=== PATIENT | male | born 1935 | race Caucasian/White ===

== ENCOUNTER 2019-01-13 09:59 | Outpatient (CLI) | payer MEDICARE ==
[~2019-01-13] VITALS: Ht 154.9 cm; Wt 50.1 kg
[~2019-01-13 09:59] MED LIST: AMLO10TA82 PO; LISI10TA PO; SIMV40TA4 PO; TERA5CAP10 PO
[2019-01-13 10:15] VITALS: BP 108/51
[2019-01-13 10:54] LABS: BASOPHILS % (AUTO) 0 % (0-10); EOSINOPHILS % (AUTO) 0 % (0-10); HEMATOCRIT 39 % (40-54); HEMOGLOBIN 13.1 G/DL (13.3-17.7); LYMPHOCYTES # (AUTO) 0.8 X 10^3 (1.0-4.0); LYMPHOCYTES % (AUTO) 12 % (12-44); MEAN CORPUSCULAR HEMOGLOBIN 33 PG (25-34); MEAN CORPUSCULAR HGB CONC 34 G/DL (32-36); MEAN CORPUSCULAR VOLUME 98 FL (80-99); MEAN PLATELET VOLUME 9.9 FL (7.4-10.4); MONOCYTES # (AUTO) 0.4 X 10^3 (0.0-1.0); MONOCYTES % (AUTO) 7 % (0-12); NEUTROPHILS # (AUTO) 5.5 X 10^3 (1.8-7.8); NEUTROPHILS % (AUTO) 81 % (42-75); PLATELET COUNT 188 10^3/uL (130-400); RED CELL DISTRIBUTION WIDTH 13.7 % (10.0-14.5); WHITE BLOOD COUNT 6.8 10^3/uL (4.3-11.0)
[2019-01-13] MEDS ORDERED: LISI10TA2 PO (11:10)
[2019-01-13] MEDS ORDERED: TERA5CAP3 PO (11:10)
[2019-01-13] MEDS ORDERED: SIMV80TA21 PO (11:10)
[2019-01-13] MEDS ORDERED: MULT-974 PO (11:10)
[2019-01-13] MEDS ORDERED: CYAN250010 PO (11:10)
== END 2019-01-13 11:22 ==
LOC: PREOP 09:59
PROVIDERS: ATTEND Urology
DX: Z01.812 Encounter for preprocedural laboratory examination (principal); N40.0 Benign prostatic hyperplasia without lower urinary tract symptoms; Z11.2 Encounter for screening for other bacterial diseases
CPT/HCPCS: 36415; 85025; 86850; 86900; 86901; 87081

== ENCOUNTER 2019-01-17 07:06 | Day surgery (SDC) | payer MEDICARE ==
[~2019-01-17] VITALS: Ht 154.9 cm; Wt 47.3 kg
[~2019-01-17 07:06] MED LIST changes: +CYAN250010 PO; +LISI10TA2 PO; +MULT-974 PO; +SIMV80TA21 PO; +TERA5CAP3 PO
[2019-01-17 07:10] VITALS: BP 150/68
--- NOTE | 2019-01-17 07:16 | Progress Note-Pre Operative ---
Pre-Operative Progress Note H&P Reviewed The H&P was reviewed, patient examined and no changes noted. Date Seen by Provider: Jan 17, 2019 Time Seen by Provider: 07:16 Date H&P Reviewed: Jan 17, 2019 Time H&P Reviewed: 07:16 Pre-Operative Diagnosis: BPH WITH PROSTATISM REFRACTORY TO MEDICAL TREATMENT HERNANDEZ ROBERTSON MD Jan 17, 2019 07:16
[2019-01-17] MEDS ORDERED: cefTRIAXone FOR IV USE 1,000 MG in WATER (STERILE) FOR INJECTION 10 ML IV ONE (07:45)
[2019-01-17] MEDS: LACTATED RINGERS 1,000 ML IV PRN ×2 (08:00→11:00)
[2019-01-17] MEDS ORDERED: LIDOCAINE PF 2% 5 ML (XYLOCAINE) VIAL ONE (10:13)
[2019-01-17] MEDS ORDERED: fentaNYL INJECTION 100 MCG/2 ML AMP ONE (10:13)
[2019-01-17] MEDS ORDERED: proPOfol 200 MG/20 ML (DIPRIVAN) VIAL IV ONE (10:13)
--- NOTE | 2019-01-17 12:08 | Progress Note-Post Operative ---
Post-Operative Progess Note Surgeon (s)/Scalping Machine Operator (s) Surgeon HERNANDEZ ROBERTSON MD Scalping Machine Operator: NONE Pre-Operative Diagnosis BPH WITH PROSTATISM REFRACTORY TO MEDICAL TREATMENT Post-Operative Diagnosis SAME Procedure & Operative Findings Date of Procedure 01/17/19 Procedure Performed/Findings TURP Anesthesia Type SPINAL Estimated Blood Loss Estimated blood loss (mL): 200CC Specimens/Packing Specimens Removed PROSTATE CHIPS Packing: NONE HERNANDEZ ROBERTSON MD Jan 17, 2019 12:08
[2019-01-17] MEDS ORDERED: BUPIVACAINE SPINAL 0.75% (SENSORCAINE) 2 ML AMP ONE (12:10)
[2019-01-17] MEDS ORDERED: BELLADONNA ALK/OPIUM (B & O) 30 MG SUPP PR PRN (12:15)
[2019-01-17] MEDS ORDERED: MILK OF MAGNESIA 400 MG/5 ML 30 ML UDC PO PRN (12:15)
[2019-01-17] MEDS ORDERED: ZOLPIDEM 5 MG (AMBIEN) TAB PO PRN (12:15)
[2019-01-17] MEDS ORDERED: morphine INJ 10 MG/ML 1ML (SYR OR VIAL) IVP ONE (12:30)
--- NOTE | 2019-01-17 13:10 | NUR ---
SASHA LO admitted to room 423-1, with an admitting diagnosis of TURP , on 01/17/19 from [facility], accompanied by STAFF.SASHA LO introduced to surroundings, call light, bed controls, phone, TV, temperature control, lights, meal times, smoking policy, visitor policy, side rail policy, bathrooms and showers. Patient Rights given to patient in the handbook.SASHA LO verbalizes understanding that [facility] is not responsible for the loss or damage to any personal effects or valuables that are kept in the patients posession during their hospitalization. The following Patient Care Plans were discussed with the PT: Discharge Planning, PAIN CONTROL AND CATH. CARE,IV THERAPY, and TESTS AND PROCEDURES. SASHA LO verbalizes understanding of Interdisciplinary Patient Education. Patient and/or family were informed about the Rapid Response Team and its purpose.
[2019-01-17 15:30] VITALS: BP 136/64
[2019-01-17] MEDS: HYDROcodone/APAP 10 MG/325 MG (LORTAB) TAB PO PRN ×2 (16:12→21:19)
[2019-01-17] MEDS: LACTATED RINGERS 1,000 ML IV SCH (16:19)
[2019-01-17 20:20] VITALS: BP 143/65
[2019-01-17] MEDS: DOCUSATE SODIUM 100 MG (COLACE) CAP PO SCH (21:18)
[2019-01-17 23:09] VITALS: BP 139/65
--- NOTE | 2019-01-17 23:37 | OPERATIVE REPORT ---
DATE OF SERVICE: 01/17/2019 PREOPERATIVE DIAGNOSIS: Benign prostatic hyperplasia with prostatism refractory to medical treatment. POSTOPERATIVE DIAGNOSIS: Benign prostatic hyperplasia with prostatism refractory to medical treatment. OPERATION PERFORMED: Transurethral resection of the prostate. SURGEON: Hernandez Robertson MD ANESTHESIA: Spinal. COMPLICATIONS: None. DESCRIPTION OF PROCEDURE: Under satisfactory spinal anesthesia, the patient in lithotomy position, genitalia were prepped and draped in usual sterile fashion. Urethra was dilated with Ariel sounds to accommodate a 27-Fij[employer] resectoscope. Resection was started first on the median lobe, which was completely leveled. Then, the lateral lobes were resected starting from the roof, the sides and finally the apical tissue and the base. Bleeders were cauterized as the resection was proceeding and hemostasis was complete and resection was very adequate. were then evacuated and cystoscopy confirmed intact ureteric orifices. Veru and sphincter with good reflux. Estimated blood loss was 200 mL, which was replaced. The resectoscope was removed a 22-Fijian 30 mL 3-way catheter was inserted, connected to continuous bladder irrigation with a return, which was tinged. The balloon was inflated to 40 mL and put on some traction. The patient tolerated the procedure and anesthesia well and was sent to recovery room in stable condition. Job ID: [id number] DocumentID: [id number] Dictated Date: 01/17/2019 12:19:52 Table Games Supervisor Date: 01/17/2019 19:26:49 Dictated By: HERNANDEZ ROBERTSON MD
[2019-01-18] MEDS: LACTATED RINGERS 1,000 ML IV SCH ×2 (00:43→04:39)
--- NOTE | 2019-01-18 03:50 | NUR ---
PT C/O LOWER ABD PAIN AND STATES THAT "MY BLADDER IS FULL AND NEED TO USE THE URINAL". BLADDER SCAND DONE AND 65ML ON BLADDER. IRRIGATION PERFORMED WITH 10ML AND NOTHING GETTING BACK. ASKED TO IRRIGATE CLAYTON HEALY AND NO ABLE TO GET ANY RETURN. OVERHEAD LINE WORKER CALLED. OVERHEAD LINE WORKER WAS ABLE TO REMOVED OBSTRUCTION. DR. ROBERTSON NOTIFIED AND GIVE ORDER TO CHANGE CATHETER IF GET CLOT IT
[2019-01-18 04:35] VITALS: BP 150/68
--- NOTE | 2019-01-18 06:33 | Anesthesia-Regional Post-Op ---
Regional Patient Condition Mental Status: Alert, Oriented x3 Circulation: Same as Pre-Op Headache: Absent Sensation: Full Recovery Motor Block: Absent Post Op Complications Complications None Follow Up Care/Instructions Patient Instructions None needed. Anesthesia/Patient Condition Patient is doing well, no complaints, stable vital signs, no apparent adverse anesthesia problems. No complications reported per nursing. LAURA SHIPMAN CRNA Jan 18, 2019 06:33
--- NOTE | 2019-01-18 06:53 | Progress Note-Urology ---
Progress Note-Urology Progress Notes/Assess & Plan Progress/Assessment & Plan AFEBRILE, VSS. URINE CRYSTAL CLEAR. COMPLAINS OF LT GROIN PAIN, NO LEG OR CALF PAIN. NONE THIS AM. NO TENDER CALVES. SEEMS RELATED TO CORRALES AND SPASMS. IF PERSISTS AFTER DC CORRLAES, WE WILL CONSULT HOSPITALIST Final Diagnosis BPH WITH PROSTATISM HERNANDEZ ROBERTSON MD Jan 18, 2019 06:53
[2019-01-18] MEDS ORDERED: cefTRIAXone FOR IV USE 1,000 MG in WATER (STERILE) FOR INJECTION 10 ML IV ONE (07:00)
[2019-01-18] MEDS: HYDROcodone/APAP 10 MG/325 MG (LORTAB) TAB PO PRN ×2 (07:46→15:01)
[2019-01-18] MEDS: DOCUSATE SODIUM 100 MG (COLACE) CAP PO SCH ×2 (07:48→20:12)
[2019-01-18 08:00] VITALS: BP 166/70
[2019-01-18] MEDS: ONDANSETRON 4 MG/2 ML (SDV) Z0FRAN IVP PRN ×2 (09:18→15:05)
[2019-01-18 12:00] VITALS: BP 160/72
[2019-01-18] MEDS ORDERED: LEVOFLOXACIN 500 MG/100 ML IV 100 ML IV ONE (12:15)
--- NOTE | 2019-01-18 14:06 | NUR ---
Initial visit with pt, his , and other family member. Pt is an active member at [facility] and shared about strong rapport with his traffic clerk, Maynor. Pt's family has had 4 recent deaths, including a nephew who in a train accident. Offered active listening, compassionate presence and bereavement support. Pt's Nurse Chemical Dependency visited him today.The family expressed appreciation for podiatric medicine professor's visit in addition to their home tenriism support.
[2019-01-18 16:00] VITALS: BP 141/63
[2019-01-18] MEDS ORDERED: PROMETHAZINE INJ 25 MG/ML (PHENERGAN) AMP IVP PRN (16:45)
[2019-01-18] MEDS: D5 LR IV SOLUTION 1,000 ML IV SCH (17:07)
[2019-01-18 19:46] VITALS: BP 166/70
--- NOTE | 2019-01-18 21:39 | NUR ---
2001 PT FEELING TO NEED TO PEE. VOIDED 50ML. BLADDER SCANNED. 570 ML POST VOID RESIDUAL 2006 DR ROBERTSON CALLED AND NEW ORDER TO STRAIGHT CATH NOW AND PRN FOR POST BLADDER SCAN GREATER THAN 400 OR IF PT FEELS UNCOMFORTABLE. 2029 STRAIGHT CATH PT WITH 550 ML OUT. STRAWBERRY COLOR, NO STRONG ODOR. PT TOLERATED WELL .
[2019-01-19] VITALS: BP 137/63
[2019-01-19] MEDS: D5 LR IV SOLUTION 1,000 ML IV SCH ×2 (02:50→08:41)
[2019-01-19 04:46] VITALS: BP 158/61
[2019-01-19 08:00] VITALS: BP 143/67
[2019-01-19] MEDS: LACTATED RINGERS 1,000 ML IV SCH (08:41)
[2019-01-19] MEDS: DOCUSATE SODIUM 100 MG (COLACE) CAP PO SCH (09:00)
--- NOTE | 2019-01-19 11:32 | Progress Note-Urology ---
Progress Note-Urology Progress Notes/Assess & Plan Progress/Assessment & Plan VOIDING WELL. URINE PINK. CONTINENT. GREAT STREAM. EMPTIES. NO PAINS. NO NAUSEA OR VOMITING. DOING WELL. HOME WITH INSTRUCTIONS Final Diagnosis BPH WITH PROSTATISM HERNANDEZ ROBERTSON MD Jan 19, 2019 11:32
--- NOTE | 2019-01-19 11:34 | Discharge Inst-Urology ---
Discharge Inst-Urology Discharge Medications New, Converted, or Re-newed RX: RX given to Patient/Fam Patient Instructions/Follow Up Plan Please make appointment to been seen in office in 2 weeks. Rest till then Keep bowels soft and moving Increase oral fluids for 48 hours and then as needed. Diet as tolerated. If questions or concerns contact your physician Or seek help at emergency department. HERNANDEZ ROBERTSON MD Jan 19, 2019 11:34
[2019-01-19 11:55] VITALS: BP 143/67
== END 2019-01-19 11:57 | disposition home or self-care (01) ==
LOC: SDC 07:06 → 4TH 13:10 → SDC 01-19 11:57
PROVIDERS: ATTEND Urology
DX: C79.82 Secondary malignant neoplasm of genital organs (principal); Z85.51 Personal history of malignant neoplasm of bladder; N40.0 Benign prostatic hyperplasia without lower urinary tract symptoms; I25.10 Atherosclerotic heart disease of native coronary artery without angina pectoris; I10 Essential (primary) hypertension; E78.00 Pure hypercholesterolemia, unspecified; F03.90 Unspecified dementia, unspecified severity, without behavioral disturbance, psychotic disturbance, mood disturbance, and anxiety; Z87.891 Personal history of nicotine dependence; Z79.899 Other long term (current) drug therapy
CPT/HCPCS: 36415; 86850; 86900; 86901; 94664

== ENCOUNTER 2019-01-21 05:58 | Emergency (ER) | payer MEDICARE ==
[~2019-01-21] VITALS: Ht 154.9 cm; Wt 47.3 kg
--- NOTE | 2019-01-21 06:07 | NUR ---
urinary catheter clamped after 900ml clear yellow urine drained.
--- NOTE | 2019-01-21 06:16 | ED GU-Male ---
General Chief Complaint: - Urinary Stated Complaint: ABD PAIN Source: patient Exam Limitations: no limitations History of Present Illness Date Seen by Provider: Jan 21, 2019 Time Seen by Provider: 06:00 Initial Comments Here with report of inability to urinate and bladder fullness that occurred starting last night and has persisted. He has been unable to pass urine. Recently had prostate procedure earlier this week for enlarged prostate. He was doing okay until yesterday evening. Denies fever or chills. Denies nausea or vomiting. Not passing any urine so doesn't know if he has blood or not. Timing/Duration: yesterday Severity/Quality: moderate, aching, full Location: suprapubic Radiation: none Activities at Onset: none Prior Genitourinary Problems: recent trauma (TURP procedure), similar symptoms Modifying Factors: Worsens With Palpation; Improves With Urinating Associated Symptoms: No dysuria, No fever/chills, No lower back pain, No nausea /vomiting Allergies and Home Medications Allergies Coded Allergies: No Known Drug Allergies (Verified Allergy, Unknown, 05/28/08) Home Medications Cyanocobalamin (Vitamin B-12) 2,500 Mcg Tablet, 2,500 MCG PO DAILY, (Reported) Lisinopril 10 Mg Tablet, 10 MG PO DAILY, (Reported) Multivitamin 1 Each Tablet, 1 EACH PO DAILY, (Reported) Simvastatin 80 Mg Tablet, 40 MG PO DAILY, (Reported) Terazosin HCl 5 Mg Capsule, 5 MG PO HS, (Reported) Patient Home Medication List Home Medication List Reviewed: Yes Review of Systems Review of Systems Constitutional: see HPI; No chills, No fever Respiratory: no symptoms reported Cardiovascular: no symptoms reported Genitourinary: see HPI, pain, other (retention) Psychiatric/Neurological: No Symptoms Reported Past Hmfwtox-Vkocna-Hyscgg Hx Past Med/Social Hx: Reviewed Nursing Past Med/Soc Hx Patient Social History Alcohol Use: Denies Use Recreational Drug Use: No Smoking Status: Former Smoker Former Smoker, Quit: Jan 13, 1965 2nd Hand Smoke Exposure: Yes Recent Foreign Travel: No Contact w/Someone Who Travel: No Recent Hopitalizations: No Immunizations Up To Date Date of Pneumonia Vaccine: Aug 09, 2017 Date of Influenza Vaccine: Aug 08, 2018 Seasonal Allergies Seasonal Allergies: Yes (MILD) Past Medical History Surgeries: Yes (HERINA REPAIR, BLADDER CA REMOVED, LEG SUTURED) Gallbladder, Transurethral Resection Respiratory: No Cardiac: No Neurological: Yes ( REPORTS PT REPEATS HIMSELF OFTEN AND IS FORGETFUL) Dementia Reproductive Disorders: No Sexually Transmitted Disease: No HIV/AIDS: No Genitourinary: Yes (BPH) Prostate Problems Gastrointestinal: Yes Chronic Constipation, Ulcer Musculoskeletal: Yes Arthritis Endocrine: No HEENT: Yes (READING GLASSES, DENTURES) Loss of Vision: Bilateral Hearing Impairment: Hard of Hearing, Bilateral Hearing Aide Cancer: Yes Bladder What Type of Treatment Did You: Surgical Intervention Psychosocial: No Integumentary: No Blood Disorders: No Adverse Reaction/Blood Tranf: No (N/A) Family Medical History Reviewed Nursing Family Hx Physical Exam Vital Signs Vital Signs - First Documented 01/21/19 06:00 Temp 98.2 Pulse 84 Resp 18 B/P (MAP) 186/72 (110) Pulse Ox 95 O2 Delivery Room Air Capillary Refill : Height, Weight, BMI Height: 5'1.00" Weight: 104lbs. 6.0oz. 47.028025yh; 19.7 BMI Method: General Appearance: WD/WN, mild distress (bladder pain) Cardiovascular: regular rate, rhythm, no murmur Respiratory: lungs clear, no accessory muscle use Gastrointestinal: soft; No guarding, No rebound; tenderness (suprapubic) Neurologic/Psychiatric: alert, oriented x 3 Skin: normal color, warm/dry Progress/Results/Core Measures Suspected Sepsis SIRS Temperature: Pulse: Respiratory Rate: Blood Pressure / Mean: Results/Orders Lab Results Laboratory Tests Test 01/21/19 06:10 Range/Units Urine Color YELLOW Urine Clarity CLEAR Urine pH 6.5 5-9 Urine Specific Steens 1.010 L 1.016-1.022 Urine Protein 3+ H NEGATIVE Urine Glucose (UA) NEGATIVE NEGATIVE Urine Ketones 1+ H NEGATIVE Urine Nitrite NEGATIVE NEGATIVE Urine Bilirubin NEGATIVE NEGATIVE Urine Urobilinogen NORMAL NORMAL MG/DL Urine Leukocyte Esterase 2+ H NEGATIVE Urine RBC (Auto) 5+ H NEGATIVE Urine RBC >100 H /HPF Urine WBC 5-10 H /HPF Urine Crystals NONE /LPF Urine Bacteria FEW H /HPF Urine Casts NONE /LPF Urine Mucus NEGATIVE /LPF Urine Culture Indicated YES My Orders Orders - JONO CASIANO MD Catheter(Urinary) Insert & Ass 03,15 (01/21/19 06:07) Ua Culture If Indicated (01/21/19 06:07) Urine Culture (01/21/19 06:10) Vital Signs/I&O 01/21/19 06:00 Temp 98.2 Pulse 84 Resp 18 B/P (MAP) 186/72 (110) Pulse Ox 95 O2 Delivery Room Air Capillary Refill : Progress Note : Progress Note Seen and evaluated. She was recent transurethral resection of the prostate. Now with urinary retention. Krueger catheter ordered. UA ordered. Monitor patient. 0620: Krueger catheter placed per nursing and passed well. Clear yellow urine draining. 900 mL out and clamped. We will restart in a few minutes. Patient feels much better. Monitor patient. 0640: UA results noted. Patient is on Cipro currently and will continue that. He feels much better after catheter placement. We'll keep that in. I will try to make contact with his physician but will send a copy of the chart to Dr. Robertson's office. Discharged home with return precautions. Patient and family verbalize understanding instructions and agreement with plan. Departure Impression Primary Impression: Postprocedural urinary retention Disposition: 01 HOME, SELF-CARE Condition: Improved Departure-Patient Inst. Decision time for Depature: 06:25 Referrals: NO,LOCAL PHYSICIAN (PCP) Primary Care Physician Patient Instructions: Urinary Retention (DC) Add. Discharge Instructions: All discharge instructions reviewed with patient and/or family. Voiced understanding. Keep catheter in place until you talk with Dr. Robertson Wednesday. Call his office Wednesday morning for appointment and recheck. Return for worse pain, fever, vomiting, weakness, breathing problems or other concerns as needed. Continue to drink plenty of fluids. Copy Copies To 1: HERNANDEZ ROBERTSON MD, TIMOTHY D MD Jan 21, 2019 06:16
[2019-01-21 06:19] LABS: BILIRUBIN,URINE NEGATIVE (NEGATIVE); CLARITY,URINE CLEAR; COLOR,URINE YELLOW; GLUCOSE, URINE (UA) NEGATIVE (NEGATIVE); KETONES,URINE 1+ (NEGATIVE); LEUKOCYTE ESTERASE ,URINE 2+ (NEGATIVE); NITRITE,URINE NEGATIVE (NEGATIVE); PH,URINE 6.5 (5-9); PROTEIN,URINE 3+ (NEGATIVE); UROBILINOGEN,URINE NORMAL (NORMAL)
[2019-01-21 06:32] LABS: BACTERIA,URINE FEW /HPF; RBC,URINE >100 /HPF
--- NOTE | 2019-01-21 06:32 | NUR ---
leg bag attached to patient
[2019-01-21 06:55] VITALS: BP 133/57
== END 2019-01-21 08:17 | disposition home or self-care (01) ==
LOC: EDUNIT# 05:58 → ER 05:59
DX: N99.89 Other postprocedural complications and disorders of genitourinary system (principal); R33.9 Retention of urine, unspecified; F03.90 Unspecified dementia, unspecified severity, without behavioral disturbance, psychotic disturbance, mood disturbance, and anxiety; Z87.19 Personal history of other diseases of the digestive system; Z87.448 Personal history of other diseases of urinary system; Z87.891 Personal history of nicotine dependence; Z98.890 Other specified postprocedural states; Z90.79 Acquired absence of other genital organ(s); Z85.51 Personal history of malignant neoplasm of bladder
CPT/HCPCS: 51702; 81000; 87088

== ENCOUNTER → 2019-03-07 | Outpatient (CLI) | payer MEDICARE ==
[~2019-03-07] MED LIST changes: +CATHETER FLUSH 10 ML SYR IV PRN
--- NOTE | 2019-03-07 13:35 | Diagnostic Imaging Report ---
PROCEDURE: CT abdomen and pelvis without contrast. TECHNIQUE: Multiple contiguous axial images were obtained through the abdomen and pelvis without the use of intravenous contrast. Auto Exposure Controls were utilized during the CT exam to meet ALARA standards for radiation dose reduction. INDICATION: History of bladder cancer. COMPARISON: 05/02/2008. FINDINGS: Included portions of both lung bases show moderate emphysematous changes. Small pericardial effusion is also noted. Note is also made of diminished density to the intravascular contents suggestive of potential underlying anemia. CT abdomen: A few mildly prominent air-filled loops of small bowel are noted within the left upper abdominal quadrant. At its widest, the small bowel measures 2.5 cm in diameter. Normal appendix is identified. There is colonic diverticulosis, but no CT evidence of acute diverticulitis. The kidneys, adrenal glands, spleen, pancreas, and liver have an unremarkable noncontrast CT appearance. Benign-appearing hypodense cyst is noted within the dome of segment 2 of the liver. There is no loculated fluid collection, free fluid, or free air within the abdomen. No abnormal mesenteric or retroperitoneal adenopathy is seen. There is advanced diffuse calcified aortic and arterial atherosclerosis. Bony structures show age-related degenerative changes. CT pelvis: Prostate is moderately enlarged measuring 5.4 x 4.8 cm in axial dimension. Patient appears to be status post previous TURP. Small amount of free fluid is noted within the pelvis. There is no loculated fluid collection or free air. No abnormal pelvic adenopathy is seen. Osseous structures show no acute abnormalities. IMPRESSION: 1. Small amount of free fluid within the pelvis. Although this is of uncertain significance etiology, it is considered abnormal in a male patient. 2. Colonic diverticulosis, but no CT evidence of acute diverticulitis. 3. Prostatomegaly with evidence of likely prior TURP. 4. Few mildly prominent air-filled loops of small bowel, but no distinct evidence of obstruction. 5. Small pericardial effusion. 6. Other nonacute findings as described above. Dictated by: Dictated on workstation # [id number]
--- NOTE | 2019-03-07 15:56 | Diagnostic Imaging Report ---
INDICATION: Newly diagnosed bladder carcinoma and history of prostate carcinoma. TECHNIQUE: Patient was administered 27.0 mCi technetium-99m MDP intravenously and whole-body imaging was performed after three-hour delay. COMPARISON: No prior bone scans are available for comparison. FINDINGS: Normal uptake of activity by the axial and appendicular skeleton is noted. There is uptake by the kidneys with excretion into urine bladder. No abnormal foci or trace accumulation is seen to suggest osseous metastatic disease. IMPRESSION: No scintigraphic evidence of osseous metastatic disease. Dictated by: Dictated on workstation # [id number]
== END ==
LOC: RAD 10:47
PROVIDERS: ATTEND Urology
DX: R18.8 Other ascites (principal); K57.30 Diverticulosis of large intestine without perforation or abscess without bleeding; N40.0 Benign prostatic hyperplasia without lower urinary tract symptoms; R14.0 Abdominal distension (gaseous); I31.3 Pericardial effusion (noninflammatory); K76.89 Other specified diseases of liver; I70.209 Unspecified atherosclerosis of native arteries of extremities, unspecified extremity; Z85.51 Personal history of malignant neoplasm of bladder; Z85.46 Personal history of malignant neoplasm of prostate
CPT/HCPCS: 74176; 78306

== ENCOUNTER 2021-08-04 21:02 | Observation (INO) | payer MEDICARE ==
[~2021-08-04] VITALS: Ht 157.5 cm; Wt 42.0 kg
[~2021-08-04 21:02] MED LIST changes: -CATHETER FLUSH 10 ML SYR IV PRN; -LISI10TA2 PO; +LISI10TA25 PO; -TERA5CAP3 PO
[2021-08-04 21:10] VITALS: BP 131/58
--- NOTE | 2021-08-04 21:36 | ED Neurological Problem ---
General Chief Complaint: Neurological Problems Stated Complaint: HEADACHE, SLURRED SPEECH, DIZZY Source: patient Exam Limitations: no limitations History of Present Illness Date Seen by Provider: Aug 04, 2021 Time Seen by Provider: 21:18 Initial Comments This is a well-appearing 86-year-old male who presented to the ER via POV with his daughter for headache, slurred speech, and dizziness that started suddenly at 1999. Daughter states that he was sitting at home when all of a sudden he grabbed his head stated "I do not feel right" and started having slurred speech. His daughter called 911 and he was evaluated by EMS at that time. His symptoms had resolved and he was instructed to go to the emergency department, family decided to go POV. Daughter states that he was recently diagnosed with early Alzheimer disease a few weeks ago, has history of HTN and HLD. He is currently at his baseline per daughter. He reports mild frontal THOMPSON. Denies fever, chills, cough, chest pain, nausea, vomiting, abdominal pain, diarrhea. Did receive his COVID vaccines this year. Daughter states his PCP with [facility]. Allergies and Home Medications Allergies Coded Allergies: No Known Drug Allergies (Verified , 05/28/08) Patient Home Medication List Home Medication List Reviewed: Yes Amlodipine Besylate (Amlodipine Besylate) 10 Mg Tablet, 10 MG PO DAILY, (Reported) Entered as Reported by: ЕЛЕНА BRIZUELA on 08/05/21 114 Last Action: Continued Atorvastatin Calcium (Atorvastatin Calcium) 20 Mg Tablet, 20 MG PO DAILY, (Reported) Entered as Reported by: ЕЛЕНА BRIZUEAL on 08/05/21 114 Last Action: Held Cholecalciferol (Vitamin D3) (Vitamin D3) 50 Mcg Tablet, 50 MCG PO DAILY, (Reported) Entered as Reported by: ЕЛЕНА BRIZUELA on 08/05/21 1149 Last Action: Converted Donepezil HCl (Donepezil HCl) 5 Mg Tablet, 5 MG PO HS, (Reported) Entered as Reported by: ЕЛЕНА BRIZUELA on 08/05/21 114 Last Action: Continued Lisinopril (Lisinopril) 10 Mg Tablet, 10 MG PO DAILY, (Reported) Entered as Reported by: KODI LESTER on 01/13/19 1110 Last Action: Continued Multivitamin (Multi-Vitamin Daily) 1 Each Tablet, 1 EACH PO DAILY, (Reported) Entered as Reported by: KODI LESTER on 01/13/191109 Last Action: Continued Ubidecarenone (Co Q-10) 100 Mg Capsule, 100 MG PO DAILY, (Reported) Entered as Reported by: ЕЛЕНА BRIZUELA on 08/05/21 1150 Last Action: Converted Discontinued Medications Cyanocobalamin (Vitamin B-12) (Vitamin B12) 2,500 Mcg Tablet, 2,500 MCG PO DAILY, (Reported) Discontinued Reason: No Longer Taking Entered as Reported by: KODI LESTER on 01/13/191109 Last Action: Discontinued Simvastatin (Simvastatin) 80 Mg Tablet, 40 MG PO DAILY, (Reported) Discontinued Reason: No Longer Taking Entered as Reported by: KODI LESTER on 01/13/191109 Last Action: Discontinued Terazosin HCl (Terazosin HCl) 5 Mg Capsule, 5 MG PO HS, (Reported) Discontinued Reason: No Longer Taking Entered as Reported by: KODI LESTER on 01/13/191109 Last Action: Discontinued Review of Systems Review of Systems Constitutional: see HPI Eyes: No Symptoms Reported Ears, Nose, Mouth, Throat: no symptoms reported Respiratory: no symptoms reported Cardiovascular: no symptoms reported Gastrointestinal: no symptoms reported Genitourinary: no symptoms reported Musculoskeletal: no symptoms reported Skin: no symptoms reported Psychiatric/Neurological: See HPI Endocrine: No Symptoms Reported Hematologic/Lymphatic: No Symptoms Reported Past Iesfhly-Iebyxu-Jvursj Hx Patient Social History Tobacco Use?: No Use of E-Cig and/or Vaping dev: No Substance use?: No Alcohol Use?: No Pt feels they are or have been: No Immunizations Up To Date Influenza Vaccine Up-to-Date: No; Not Current Second COVID19 Vaccination Dennis: 01/19 COVID19 Vaccine Disability Coordinator: Unsure Seasonal Allergies Seasonal Allergies: Yes Past Medical History Surgeries: Yes (HERINA REPAIR, BLADDER CA REMOVED, LEG SUTURED) Gallbladder, Transurethral Resection Respiratory: No Cardiac: No Neurological: Yes Dementia Reproductive Disorders: No Sexually Transmitted Disease: No HIV/AIDS: No Genitourinary: Yes (BPH) Prostate Problems Gastrointestinal: Yes Chronic Constipation, Ulcer Musculoskeletal: Yes Arthritis Endocrine: No HEENT: Yes (READING GLASSES, DENTURES) Loss of Vision: Bilateral Hearing Impairment: Hard of Hearing, Bilateral Hearing Aide Cancer: Yes Bladder What Type of Treatment Did You: Surgical Intervention Psychosocial: No Integumentary: No Blood Disorders: No Adverse Reaction/Blood Tranf: No (N/A) Physical Exam Vital Signs Vital Signs - First Documented 08/04/21 08/04/21 21:10 21:26 Temp 36.3 Pulse 72 Resp 20 B/P (MAP) 131/58 Pulse Ox 97 O2 Delivery Room Air Capillary Refill : Height, Weight, BMI Height: 5'1.00" Weight: 104lbs. 6.0oz. 47.892422wd; 19.7 BMI Method:Stated General Appearance: WD/WN, no apparent distress HEENT: PERRL/EOMI, normal ENT inspection, TMs normal, pharynx normal Neck: full range of motion, normal inspection Respiratory: lungs clear, normal breath sounds, no respiratory distress, no accessory muscle use Cardiovascular: normal peripheral pulses, regular rate, rhythm, no murmur Peripheral Pulses: 2+ Radial Pulses (R), 2+ Radial Pulses (L) Gastrointestinal: normal bowel sounds, non tender, soft Back: normal inspection Extremities: normal range of motion, non-tender, normal inspection, no pedal edema Neurologic/Psychiatric: no motor/sensory deficits, alert, normal mood/affect; No oriented x 3 (oriented to person only ), No facial droop, No motor weakness, No sensory deficit Crainal Nerves: normal hearing, normal speech, PERRL Coordination/Gait: normal finger to nose Motor/Sensory: no motor deficit, no sensory deficit, no pronator drift Skin: normal color, warm/dry Stroke Onset of Symptoms Date of Onset of Symptoms: Aug 04, 2021 Time of Symptom Onset: 20:00 Onset of Symptoms: Yes Symptoms onset unknown: No NIH Stroke Scale Assessment Select: Initial Level of Consciousness: 0=Alert (0), Level of Consciousness- Questions: 0=Answers both month/age (0), LOC Commands: 0=Performs both tasks (0), Gaze: Normal (0), Visual Mas: 0=No visual loss (0), Facial Movement (Facial Paresis): 0=Normal symmetrical mnt (0), Motor Function-Arms Right: 0=No drift (0), Motor Function-Arms Left: 0=No drift (0), Motor Function-Legs Right: 0=No drift (0), Motor Function-Legs Left: 0=No drift (0), Limb Ataxia: 0=Absent (0), Sensory: 0=Normal:no loss (0), Best Language: 0=No aphasia (0), Dysarthria: 0=Normal (0), Extinction & Inattention: 0=No abnormality (0), Total: 0 Progress/Results/Core Measures Results/Orders Lab Results Laboratory Tests Test 08/04/21 21:25 Range/Units White Blood Count 10.7 4.3-11.0 10^3/uL Red Blood Count 4.17 L 4.30-5.52 10^6/uL Hemoglobin 13.8 13.3-17.7 g/dL Hematocrit 42 40-54 % Mean Corpuscular Volume 100 H 80-99 fL Mean Corpuscular Hemoglobin 33 25-34 pg Mean Corpuscular Hemoglobin Concent 33 32-36 g/dL Red Cell Distribution Width 12.9 10.0-14.5 % Platelet Count 220 130-400 10^3/uL Mean Platelet Volume 9.9 9.0-12.2 fL Immature Granulocyte % (Auto) 0 % Neutrophils (%) (Auto) 85 H 42-75 % Lymphocytes (%) (Auto) 9 L 12-44 % Monocytes (%) (Auto) 5 0-12 % Eosinophils (%) (Auto) 0 0-10 % Basophils (%) (Auto) 0 0-10 % Neutrophils # (Auto) 9.0 H 1.8-7.8 10^3/uL Lymphocytes # (Auto) 1.0 1.0-4.0 10^3/uL Monocytes # (Auto) 0.6 0.0-1.0 10^3/uL Eosinophils # (Auto) 0.0 0.0-0.3 10^3/uL Basophils # (Auto) 0.0 0.0-0.1 10^3/uL Immature Granulocyte # (Auto) 0.0 0.0-0.1 10^3/uL Prothrombin Time 14.1 12.2-14.7 SEC INR Comment 1.0 0.8-1.4 Activated Partial Thromboplast Time 30 24-35 SEC D-Dimer 0.48 0.00-0.49 UG/ML Sodium Level 142 135-145 MMOL/L Potassium Level 4.1 3.6-5.0 MMOL/L Chloride Level 102 98-107 MMOL/L Carbon Dioxide Level 23 21-32 MMOL/L Anion Gap 17 H 5-14 MMOL/L Blood Urea Nitrogen 30 H 7-18 MG/DL Creatinine 1.30 0.60-1.30 MG/DL Estimat Glomerular Filtration Rate 52 BUN/Creatinine Ratio 23 Glucose Level 137 H 70-105 MG/DL Calcium Level 10.8 H 8.5-10.1 MG/DL Corrected Calcium 10.4 H 8.5-10.1 MG/DL Total Bilirubin 1.0 0.1-1.0 MG/DL Aspartate Amino Transf (AST/SGOT) 32 5-34 U/L Alanine Aminotransferase (ALT/SGPT) 30 0-55 U/L Alkaline Phosphatase 78 40-136 U/L Troponin I < 0.028 <0.028 NG/ML Total Protein 7.2 6.4-8.2 GM/DL Albumin 4.5 3.2-4.5 GM/DL My Orders Orders - RADHA MERA APRN Cbc With Automated Diff (08/04/21:) Protime With Inr (08/04/21:) Partial Thromboplastin Time (08/04/21:) Comprehensive Metabolic Panel (08/04/21:) Fibrin Degradation Products (08/04/21:) Troponin I (08/04/21:) Ua Culture If Indicated (08/04/21:) Chest 1 View, Ap/Pa Only (08/04/21:) Ekg Tracing (08/04/21:) Accucheck Stat ONCE (08/04/21:) Ed Iv/Invasive Line Start (08/04/21:) Vital Signs Stroke Patient Q15M (08/04/21 21:09) Ct Head Wo-R/O Stroke (08/04/21 21:) O2 (08/04/21:) Monitor-Rhythm Ecg Trace Only (08/04/21:) Dysphagia Screening Tool (08/04/21 21:) Vital Signs Stroke Patient Q15M (08/04/21 22:44) Dysphagia Screening Tool (08/04/21 22:44) Ct Angio Head/Neck (08/04/21 22:44) Vital Signs/I&O 08/04/21 08/04/21 21:10 21:26 Temp 36.3 Pulse 72 72 Resp 20 20 B/P (MAP) 131/58 131/58 (82) Pulse Ox 97 97 O2 Delivery Room Air Progress Progress Note : Progress Note Patient examined and in no acute distress. Daughter states that his symptoms had sudden onset and resolved quickly as well. She decided to have him evaluated in the ER due to concern for stroke. Initiated stroke workup. CT head neg. Labs reviewed and are relatively unremarkable. EKG SR, with no ST segment changes. His NIH is 0. CT angio head/neck neg for large vessel occlusion or high grade stenosis. Given ASA 325mg in ED. Discussed case with Dr. Vora, will admit observation and continue TIA vs CVA workup. Plan of care reviewed with patient and daughter, they are agreeable with plan. Initial ECG Impression Date: Aug 04, 2021 Initial ECG Impression Time: 21:36 Initial ECG Rate: 70 Initial ECG Rhythm: Normal Sinus Initial ECG Intervals: Normal Initial ECG Impression: Nonspecific Changes Initial ECG Comparisson: No Previous ECG Available Diagnostic Imaging Diagonstic Imaging: Xray Plain Films/CT/US/NM/MRI: chest Comments [facility]. [place], [place] NAME: SASHA LO [facility] REC#: [id number] PT STATUS: REG ER : 1935 PHYSICIAN: RADHA MERA APRN ADMIT DATE: 08/04/21/ER Signed Date of Exam:08/04/21 CHEST 1 VIEW, AP/PA ONLY INDICATION: Dizziness, confusion, slurred speech. FINDINGS: There is bullous emphysematous changes in the lungs present. There is equivocal findings for a vague developing infiltrate in the left base but this may be partial atelectasis. There is chronic scarring superimposed. Hilar and mediastinal contours normal. There is no failure pattern. 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 No other potential acute abnormality. Dictated by: Dictated on workstation # [id number] Dict: 08/04/215 Trans: 08/04/214 [facility] [id number] Interpreted by: BEAU TRIANA Electronically signed by: BEAU TRIANA 08/04/212203 Reviewed: Reviewed by Nm Diagonstic Imaging: CT Plain Films/CT/US/NM/MRI: head Comments [facility] [place] NAME: SASHA LO [facility] REC#: [id number] PT STATUS: REG ER : 1935 PHYSICIAN: RADHA MERA COMMUNICATION TECHNICIAN ADMIT DATE: 08/04/21/ER Signed Date of Exam:08/04/21 CT HEAD WO-R/O STROKE PROCEDURE: CT head wo r/o stroke. TECHNIQUE: Multiple contiguous axial images were obtained through the brain without the use of intravenous contrast. Auto Exposure Controls were utilized during the CT exam to meet ALARA standards for radiation dose reduction. INDICATION: Weakness, dizziness, head pain. No priors. FINDINGS: There is mild senescent cerebral cortical atrophy but no eboni hydrocephalus. There is intracranial atherosclerotic vascular calcifications of the cavernous carotids as well as the left intrathecal vertebral artery. Chronic appearing symmetrical periventricular white matter disease likely small vessel sequelae. No evidence for cortical edema. No sulcal effacement. No mass or mass effect. There is no hemorrhage. There are no acute extra-axial fluid collections. No findings of focal nor generalized cerebral edema. No evidence for an elevation to the intracerebral pressures. IMPRESSION: Atherosclerosis, atrophy and chronic appearing white matter disease. No hemorrhage, edema, or acute appearing abnormalities. Dictated by: Dictated on workstation # [id number] Dict: 08/04/212216 Trans: 08/04/212244 [facility] [id number] Interpreted by: BEAU TRIANA Electronically signed by: BEAU TRIANA 08/04/212244 Reviewed: Reviewed by Nm Diagonstic Imaging: CT Comments [facility] [place] NAME: SASHA LO [facility] REC#: [id number] PT STATUS: REG ER : 1935 PHYSICIAN: RADHA MERA COMMUNICATION TECHNICIAN ADMIT DATE: 08/04/21/ER Signed Date of Exam:08/04/21 CT HEAD WO-R/O STROKE PROCEDURE: CT head wo r/o stroke. TECHNIQUE: Multiple contiguous axial images were obtained through the brain without the use of intravenous contrast. Auto Exposure Controls were utilized during the CT exam to meet ALARA standards for radiation dose reduction. INDICATION: Weakness, dizziness, head pain. No priors. FINDINGS: There is mild senescent cerebral cortical atrophy but no eboni hydrocephalus. There is intracranial atherosclerotic vascular calcifications of the cavernous carotids as well as the left intrathecal vertebral artery. Chronic appearing symmetrical periventricular white matter disease likely small vessel sequelae. No evidence for cortical edema. No sulcal effacement. No mass or mass effect. There is no hemorrhage. There are no acute extra-axial fluid collections. No findings of focal nor generalized cerebral edema. No evidence for an elevation to the intracerebral pressures. IMPRESSION: Atherosclerosis, atrophy and chronic appearing white matter disease. No hemorrhage, edema, or acute appearing abnormalities. Dictated by: Dictated on workstation # [id number] Dict: 08/04/217 Trans: 08/04/215 [facility] [id number] Interpreted by: BEAU TRIANA Electronically signed by: BEAU TRIANA 08/04/215 Reviewed: Reviewed by Me Departure Communication (Admissions) Time/Spoke to Admitting Phy: 21:45 Dr. Vora Impression Primary Impression: TIA (transient ischemic attack) Disposition: ADMITTED INPATIENT Condition: Stable Admissions Decision to Admit Reason: Admit from ER (General) Decision to Admit/Date: Aug 04, 2021 Time/Decision to Admit Time: 21:30 Departure-Patient Inst. Referrals: NO,LOCAL PHYSICIAN (PCP/Family) Primary Care Physician Copy Copies To 1: [facility]/RADHA HERRERA COMMUNICATION TECHNICIAN Aug 04, 2021 21:36
--- NOTE | 2021-08-04 22:04 | Diagnostic Imaging Report ---
INDICATION: Dizziness, confusion, slurred speech. FINDINGS: There is bullous emphysematous changes in the lungs present. There is equivocal findings for a vague developing infiltrate in the left base but this may be partial atelectasis. There is chronic scarring superimposed. Hilar and mediastinal contours normal. There is no failure pattern. 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 No other potential acute abnormality. Dictated by: Dictated on workstation # [id number]
[2021-08-04 22:11] LABS: BASOPHILS % (AUTO) 0 % (0-10); EOSINOPHILS % (AUTO) 0 % (0-10); HEMATOCRIT 42 % (40-54); HEMOGLOBIN 13.8 g/dL (13.3-17.7); LYMPHOCYTES % (AUTO) 9 % (12-44); MEAN CORPUSCULAR HEMOGLOBIN 33 pg (25-34); MEAN CORPUSCULAR HGB CONC 33 g/dL (32-36); MEAN CORPUSCULAR VOLUME 100 fL (80-99); MEAN PLATELET VOLUME 9.9 fL (9.0-12.2); MONOCYTES # (AUTO) 0.6 10^3/uL (0.0-1.0); MONOCYTES % (AUTO) 5 % (0-12); NEUTROPHILS % (AUTO) 85 % (42-75); PLATELET COUNT 220 10^3/uL (130-400); WHITE BLOOD COUNT 10.7 10^3/uL (4.3-11.0)
[2021-08-04 22:21] LABS: ALBUMIN 4.5 GM/DL (3.2-4.5); CHLORIDE 102 MMOL/L (98-107); POTASSIUM 4.1 MMOL/L (3.6-5.0); SODIUM 142 MMOL/L (135-145)
[2021-08-04 22:22] LABS: CALCIUM 10.8 MG/DL (8.5-10.1)
[2021-08-04 22:24] LABS: GLUCOSE 137 MG/DL (70-105); TOTAL PROTEIN 7.2 GM/DL (6.4-8.2)
[2021-08-04 22:25] LABS: CARBON DIOXIDE 23 MMOL/L (21-32); FIBRIN DEGRADATION PRODUCTS 0.48 UG/ML (0.00-0.49); PROTHROMBIN TIME PATIENT 14.1 SEC (12.2-14.7)
[2021-08-04 22:27] LABS: ALKALINE PHOSPHATASE 78 U/L (40-136); GFR ESTIMATED 52
[2021-08-04 22:28] LABS: BUN/CREATININE RATIO 23
--- NOTE | 2021-08-04 22:29 | Diagnostic Imaging Report ---
PROCEDURE: CT head wo r/o stroke. TECHNIQUE: Multiple contiguous axial images were obtained through the brain without the use of intravenous contrast. Auto Exposure Controls were utilized during the CT exam to meet ALARA standards for radiation dose reduction. INDICATION: Weakness, dizziness, head pain. No priors. FINDINGS: There is mild senescent cerebral cortical atrophy but no eboni hydrocephalus. There is intracranial atherosclerotic vascular calcifications of the cavernous carotids as well as the left intrathecal vertebral artery. Chronic appearing symmetrical periventricular white matter disease likely small vessel sequelae. No evidence for cortical edema. No sulcal effacement. No mass or mass effect. There is no hemorrhage. There are no acute extra-axial fluid collections. No findings of focal nor generalized cerebral edema. No evidence for an elevation to the intracerebral pressures. IMPRESSION: Atherosclerosis, atrophy and chronic appearing white matter disease. No hemorrhage, edema, or acute appearing abnormalities. Dictated by: Dictated on workstation # [id number]
[2021-08-04 22:30] LABS: ALANINE AMINOTRANSFERASE 30 U/L (0-55)
[2021-08-04] MEDS ORDERED: NS 100 ML (IVPB) BAG IV ONE (23:30)
[2021-08-04] MEDS ORDERED: ASPIRIN E.C. 325 MG (ECOTRIN) TABLET PO ONE (23:30)
[2021-08-04] MEDS ORDERED: IOHEXOL 350 MG/ML 100 ML (OMNIPAQUE 350) VIAL IV ONE (23:30)
[2021-08-04] MEDS ORDERED: CATHETER FLUSH 10 ML SYR IV PRN (23:30)
[2021-08-04] MEDS ORDERED: HOLD METFORMIN - RECEIVED CONTRAST 20 ML VIAL IV SCH (23:30)
[2021-08-04 23:53] LABS: BILIRUBIN,URINE NEGATIVE (NEGATIVE); CLARITY,URINE SL CLOUDY; COLOR,URINE YELLOW; GLUCOSE, URINE (UA) NEGATIVE (NEGATIVE); KETONES,URINE 1+ (NEGATIVE); LEUKOCYTE ESTERASE ,URINE NEGATIVE (NEGATIVE); NITRITE,URINE NEGATIVE (NEGATIVE); PH,URINE 5.5 (5-9); PROTEIN,URINE NEGATIVE (NEGATIVE)
[2021-08-05] VITALS (8 sets, daily range): BP systolic 121–163; BP diastolic 58–72
--- NOTE | 2021-08-05 | Diagnostic Imaging Report ---
PROCEDURE: CT angiography of the head and CT angiography of the neck with and without contrast. TECHNIQUE: Contiguous noncontrast images were obtained from the skull base through the vertex. After intravenous contrast administration, helical CT angiography of the neck was performed. Source data was reformatted into 3D MIP projections. Delayed post contrast acquisition was also obtained. Auto Exposure Controls were utilized during the CT exam to meet ALARA standards for radiation dose reduction. INDICATION: Weakness, dizziness, head pain. FINDINGS: Delayed postcontrast enhanced head CT showed atrophy and patchy periventricular white matter disease but no mass or abnormal enhancement. Following contrast, there is enhancement of the major dural venous sinuses. CT angiogram neck: Visualized pulmonary apices showed centrilobular emphysema and some biapical pleural-parenchymal scarring. Atherosclerotic aorta is patent. The branching pattern of the great vessels normal. The subclavian arteries patent. The bilateral cervical vertebral arteries showed mild non-stenosing scattered calcified plaque. The vessels are codominant and no hemodynamically significant stenosis. Common carotids patent with mild scattered plaque without significant stenosis. The carotid bulbs and bifurcations reveal left greater than right predominantly calcified plaque. Just beyond its bifurcation the left ICA is narrowed by about 50-60%, the right narrowed by less than 50%. Mid to distal cervical ICAs widely patent. CT angiogram head: There is left greater than right intradural vertebral atherosclerotic calcified plaque. The density of a calcified plaque in the left vertebral obscures from visualization its lumen beyond the calcified plaque there is wide patency and opacification of the vessels lumen. The bilateral FISHING ROD ASSEMBLER segments opacified and unremarkable. There is calcified plaque in the cavernous segments of the intracranial carotids both of which have stenoses of 50% or less. The A1 segments and the paired anterior cerebral arteries normal. The bilateral middle cerebral arterial segments and their primary branches are patent. No large vessel occlusion, thrombus or filling defects seen. There is no aneurysm or vascular malformation. IMPRESSION: Cervical and intracranial predominantly calcified atherosclerotic disease without high-grade stenosis, large vessel occlusion, thrombus, aneurysm or acute appearing arterial pathology. Dictated by: Dictated on workstation # [id number]
[2021-08-05 00:07] LABS: BACTERIA,URINE NEGATIVE /HPF
[2021-08-05 01:14] LABS: HEMATOCRIT 40 % (40-54); HEMOGLOBIN 13.3 g/dL (13.3-17.7); MEAN CORPUSCULAR HEMOGLOBIN 33 pg (25-34); MEAN CORPUSCULAR HGB CONC 34 g/dL (32-36); MEAN CORPUSCULAR VOLUME 99 fL (80-99); MEAN PLATELET VOLUME 9.8 fL (9.0-12.2); PLATELET COUNT 205 10^3/uL (130-400); WHITE BLOOD COUNT 10.3 10^3/uL (4.3-11.0)
[2021-08-05] MEDS ORDERED: fentaNYL INJ 100 MCG/2 ML AMP IV PRN (01:30)
[2021-08-05] MEDS ORDERED: ONDANSETRON 4 MG/2 ML (SDV) Z0FRAN IV PRN (01:30)
[2021-08-05] MEDS ORDERED: ENALAPRILAT 2.5 MG/2 ML (VASOTEC) VIAL IV PRN (01:30)
[2021-08-05] MEDS ORDERED: ACETAMINOPHEN 325 MG TABLET PO PRN ×2 (01:30)
[2021-08-05] MEDS: NS IV 1000 ML 1,000 ML IV SCH ×2 (01:42→20:03)
[2021-08-05] MEDS ORDERED: ACETAMINOPHEN 650 MG SUPP (TYLENOL) PR PRN (01:45)
[2021-08-05] MEDS ORDERED: RT-ALBUTEROL SULF 2.5 MG/3 ML PRE-MIX VIAL INH PRN (02:15)
[2021-08-05 06:06] LABS: BASOPHILS % (AUTO) 0 % (0-10); EOSINOPHILS % (AUTO) 0 % (0-10); HEMATOCRIT 40 % (40-54); HEMOGLOBIN 13.6 g/dL (13.3-17.7); LYMPHOCYTES # (AUTO) 1.9 10^3/uL (1.0-4.0); LYMPHOCYTES % (AUTO) 18 % (12-44); MEAN CORPUSCULAR HEMOGLOBIN 33 pg (25-34); MEAN CORPUSCULAR HGB CONC 34 g/dL (32-36); MEAN CORPUSCULAR VOLUME 98 fL (80-99); MEAN PLATELET VOLUME 9.9 fL (9.0-12.2); MONOCYTES # (AUTO) 0.7 10^3/uL (0.0-1.0); MONOCYTES % (AUTO) 6 % (0-12); NEUTROPHILS % (AUTO) 75 % (42-75); PLATELET COUNT 237 10^3/uL (130-400); WHITE BLOOD COUNT 10.6 10^3/uL (4.3-11.0)
[2021-08-05 06:18] LABS: POTASSIUM 3.8 MMOL/L (3.6-5.0)
[2021-08-05 06:19] LABS: ALBUMIN 4.5 GM/DL (3.2-4.5)
[2021-08-05 06:20] LABS: CALCIUM 10.3 MG/DL (8.5-10.1)
[2021-08-05 06:21] LABS: TOTAL PROTEIN 7.2 GM/DL (6.4-8.2)
[2021-08-05 06:23] LABS: BILIRUBIN,TOTAL 1.1 MG/DL (0.1-1.0)
[2021-08-05 06:25] LABS: CREATININE SERUM 0.87 MG/DL (0.60-1.30)
[2021-08-05] MEDS: ENOXAPARIN 30 MG/0.3 ML (LOVENOX) SYR SC SCH (08:27)
--- NOTE | 2021-08-05 08:45 | Diagnostic Imaging Report ---
PROCEDURE: US carotid duplex, bilateral. TECHNIQUE: Multiple real-time grayscale images were obtained over the carotid arteries in various projections, bilaterally. Additional spectral analysis and color Doppler duplex images were also obtained. INDICATION: Transient ischemic attack Parameters based on the consensus panel Aggarwal-Scale and Doppler ultrasound criteria published September 2003, Radiology, Volume 229. DOPPLER (peak systolic velocity M/S Right Left CCA 1.06 1.31 ICA Proximal 0.79 1.29 ICA Mid 1.36 1.01 ICA Distal 1.14 .68 RATIO 1.28 .98 ECA 1.10 .94 VERT .55 .56 There is significant plaque seen throughout the bilateral common carotid arteries, carotid bifurcations, extending into the internal and external carotid arteries. Waveforms are normal. There is normal antegrade flow within both vertebral arteries. IMPRESSION: 1. 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 2. There is 50-69% stenosis of the left internal carotid artery by velocity criteria. Dictated by: Dictated on workstation # [id number]
[2021-08-05] MEDS ORDERED: ASPIRIN 300 MG (5 GR) SUPPOSITORY PR PRN (09:00)
[2021-08-05] MEDS ORDERED: ASPIRIN E.C. 325 MG (ECOTRIN) TABLET PO SCH (09:00)
[2021-08-05] MEDS ORDERED: LORazepam INJ 2 MG/ML (ATIVAN) VIAL ONE (10:05)
[2021-08-05] MEDS: LORazepam INJ 2 MG/ML (ATIVAN) VIAL IVP PRN ×3 (10:10→20:48)
[2021-08-05] MEDS ORDERED: LORazepam INJ 2 MG/ML (ATIVAN) VIAL IVP PRN ×2 (10:30→21:45)
--- NOTE | 2021-08-05 10:31 | Physical Therapy Evaluation ---
PT Evaluation-General Medical Diagnosis Admission Date Aug 04, 2021 at 23:05 Medical Diagnosis: TIA Onset Date: Aug 04, 2021 Therapy Diagnosis Therapy Diagnosis: debility/weakness Height/Weight Height (Feet): 5 Height (Inches): 1.00 Weight (Pounds): 104 Weight (Ounces): 6.0 Precautions Precautions/Isolations: Fall Prevention, Standard Precautions Referral Physician: Vielka Reason for Referral: Evaluation/Treatment Medical History Pertinent Medical History: Dementia, HTN Additional Medical History bladder cancer Current History ER secondary to [place], slurred speech and dizziness Reviewed History: Yes Social History Home: Single Level Current Living Status: Other Family Prior Prior Level of Function SCALE: Activities may be completed with or without assistive devices. 6-Xrzdmllomm-azhljjl completes the activity by him/herself with no assistance from a helper. 5-Set-up or Clean-up Assistance-helper sets up or cleans up; patient completes activity. Burton assists only prior to or following the activity. 4-Supervision or Touching Assistance-helper provides verbal cues and/or touching/steadying and/or contact guard assistance as patient completes activity. Assistance may be provided throughout the activity or intermittently. 3-Partial/Moderate Assistance-helper does LESS THAN HALF the effort. Burton lifts, holds or supports trunk or limbs, but provides less than half the effort. 2-Substantial/Maximal Assistance-helper does MORE THAN HALF the effort. Burton lifts or holds trunk or limbs and provides more than half the effort. 0-Fxmqmrnah-czxeje does ALL the effort. Patient does none of the effort to complete the activity. Or, the assistance of 2 or more helpers is required for the patient to complete the activity. If activity was not attempted, code reason: 7-Patient Refused. 9-Not Applicable-not attempted and the patient did not perform the activity before the current illness, exacerbation or injury. 10-Not Attempted due to Environmental Limitations-(lack of equipment, weather restraints, etc.). 88-Not Attempted due to Medical Conditions or Safety Concerns. Bed Mobility: 6 Transfers (B,C,W/C): 6 Gait: 6 Indoor Mobility (Ambulation): Independent Prior Devices Use: None PT Evaluation-Current Subjective Patient agrees to PT. Objective Patient Orientation: Person Attachments: IV ROM/Strength ROM Lower Extremities bilateral LE WFL Strength Lower Extremities 4-/5 grossly bilateral LE Integumentary/Posture Bowel Incontinence: No Bladder Incontinence: No Posture WFL Neuromuscular (Tone, Coordination, Reflexes) grossly intact Sensory Vision: Functional Hearing: Functional Transfers Lying to Sitting/Side of Bed(Q: 4 Sit to Stand (QC): 4 Chair/Wzx-rp-Svhjm Xfer(QC): 4 SBA for safety Gait Does the Patient Walk?: Yes Mode of Locomotion: Walk Anticipated Mode of Locomotion: Walk Walk 10 feet (QC): 4 Walk 50 ft with 2 Turns(QC): 4 Walk 150 ft (QC): 4 Distance: 300' Gait Assistive Device: FWW Comments/Gait Description safe and functional with no deviation Balance Sitting Static: Normal Sitting Dynamic: Normal Standing Static: Normal Standing Dynamic: Normal Assessment/Needs 86 y.o. male, will be seen short term by skilled PT to address functional mobility and strength to ensure safe return to home at maximum LOF. 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 Goals Time Frame: Aug 09, 2021 Roll Left & Right (QC): 5 Sit to Lying (QC): 5 Lying-Sitting on Side/Bed(QC): 5 Sit to Stand (QC): 5 Chair/Hkg-nk-Zhtem Xfer(QC): 5 Toilet Transfer (QC): 5 Walk 10 feet (QC): 5 Walk 50ft with 2 Turns (QC): 5 Walk 150 ft (QC): 5 PT Plan Problem List Problem List: Safety Treatment/Plan Treatment Plan: Continue Plan of Care Treatment Plan: Education, Functional Activity Melva, Functional Strength, Gait, Safety, Therapeutic Exercise, Transfers Treatment Duration: Aug 09, 2021 Frequency: 5 times per week Estimated Hrs Per Day: .25 hour per day Patient and/or Family Agrees t: Yes Time/GCodes Time In: 807 Time Out: 820 Total Billed Treatment Time: 13 Total Billed Treatment 1 visit EVModC 13 min ORLANDO ZEPEDA PT Aug 05, 2021 10:31
--- NOTE | 2021-08-05 11:08 | Consultation-Cardiology ---
HPI-Cardiology Cardiology Consultation: Date of Consultation 08/05/21 Time Seen by a Provider: 10:40 Date of Admission 08-04-21 Attending Physician Lynn Yu DO Admitting Physician Naomi,Local Physician Consulting Physician Celsa Llanos MD HPI: Chief Complaint: TIA Mr. Jiménez is an 86 yr old male admitted to [facility] from the ED with possible TIA vs CVA. He has dementia and Alzeheimers and is unable to provide any information. His daughter and are at the bedside. They report yesterday he was helping to carry in groceries earlier in the day when he reported SOB, abd distension and fatigue. She states later in the day he was helping in the kitchen when he grabbed his head and c/o feeling dizzy. He sat down in a chair and slumped to the left side and began drooling and they were unable to get him to answer them. Daughter states she called EMS. She states after several minutes he c/o needing to have a BM. She reports he was becoming more responsive so she helped him to ambulate to the . She reports while he was ambulating he began to have profuse drooling and his words were slurred. She reports he c/o occ palpitations with exertion which improve with rest. She reports he has not reported any c/o CP. No vomiting or diarrhea. She reports no weakness or facial asymmetry. Review of Systems-Cardiology Review of Systems Other comments ROS to the extent it could be obtained from family is as in HPI. D/t dementia he is unable to provide any information SQH-Bxnszt-Otiiag Hx Patient Social History Smoking Status: Former Smoker 2nd Hand Smoke Exposure: Yes Have you traveled recently?: No Alcohol Use?: Yes Pt feels they are or have been: No Tobacco type used: Cigarettes Immunizations Up To Date Date of Pneumonia Vaccine: Aug 09, 2017 Date of Influenza Vaccine: Aug 08, 2018 Past Medical History PMH As described under Assessment. Family Medical History Family Medical History: Daughter reports his mother had a CVA. Allergies and Home Medications Allergies Coded Allergies: No Known Drug Allergies (Verified , 05/28/08) Patient Home Medication List Cyanocobalamin (Vitamin B-12) (Vitamin B12) 2,500 Mcg Tablet, 2,500 MCG PO DAILY, (Reported) Entered as Reported by: KODI LESTER on 01/13/19 1110 Lisinopril (Lisinopril) 10 Mg Tablet, 10 MG PO DAILY, (Reported) Entered as Reported by: KODI LESTER on 01/13/19 111 Multivitamin (Multi-Vitamin Daily) 1 Each Tablet, 1 EACH PO DAILY, (Reported) Entered as Reported by: KODI LESTER on 01/13/19 111 Simvastatin (Simvastatin) 80 Mg Tablet, 40 MG PO DAILY, (Reported) Entered as Reported by: KODI LESTER on 01/13/19 111 Terazosin HCl (Terazosin HCl) 5 Mg Capsule, 5 MG PO HS, (Reported) Entered as Reported by: KODI LESTER on 01/13/191109 Physical Exam-Cardiology Physical Exam Vital Signs/I&O 08/05/21 08/05/21 08/05/21 08/05/21 00:41 00:45 00:58 02:04 Temp 36.2 36.3 Pulse 83 95 72 Resp 20 18 B/P (MAP) 121/59 163/72 (102) Pulse Ox 97 94 97 97 O2 Delivery Room Air Room Air Room Air FiO2 21 08/05/21 08/05/21 08/05/21 08/05/21 03:57 04:12 06:46 07:39 Temp 36.0 Pulse 80 69 76 Resp 18 B/P (MAP) 127/69 (88) Pulse Ox 97 O2 Delivery Room Air Room Air 08/05/21 08/05/21 08:00 08:35 Temp 36.5 Pulse 79 Resp 18 B/P (MAP) 133/61 (85) Pulse Ox 97 O2 Delivery Room Air Room Air Capillary Refill : Less Than 3 Seconds Constitutional: No AAO x 3 (opens eyes and answers to his name only); other (thin, frail) HEENT: PERRL, hard of hearing Neck: carotid bruit, carotid pulses are 2 + bilaterally Respiratory: No accessory muscle use, No respiratory distress; chest expansion is symmetric, chest is bilaterally symmetric, lungs clear to auscultation Cardiovascular: regular rate-rhythm; No JVD; S1 and S2 Gastrointestinal: No tender; soft, round, audible bowel sounds Extremities: no lower extremity edema bilateral Neurologic/Psychiatric: grossly intact (moves all extremities) Skin: No rash on exposed areas, No ulcerations on exposed areas Data Review Labs Laboratory Tests 08/04/21 21:25: White Blood Count 10.7, Red Blood Count 4.17L, Hemoglobin 13.8, Hematocrit 42, Mean Corpuscular Volume 100H, Mean Corpuscular Hemoglobin 33, Mean Corpuscular Hemoglobin Concent 33, Red Cell Distribution Width 12.9, Platelet Count 220, Mean Platelet Volume 9.9, Immature Granulocyte % (Auto) 0, Neutrophils (%) (Auto) 85H, Lymphocytes (%) (Auto) 9L, Monocytes (%) (Auto) 5, Eosinophils (%) (Auto) 0, Basophils (%) (Auto) 0, Neutrophils # (Auto) 9.0H, Lymphocytes # (Auto) 1.0, Monocytes # (Auto) 0.6, Eosinophils # (Auto) 0.0, Basophils # (Auto) 0.0, Immature Granulocyte # (Auto) 0.0, Prothrombin Time 14.1, INR Comment 1.0, Activated Partial Thromboplast Time 30, D-Dimer 0.48, Sodium Level 142, Potassium Level 4.1, Chloride Level 102, Carbon Dioxide Level 23, Anion Gap 17H, Blood Urea Nitrogen 30H, Creatinine 1.30, Estimat Glomerular Filtration Rate 52, BUN/Creatinine Ratio 23, Glucose Level 137H, Calcium Level 10.8H, Corrected Calcium 10.4H, Total Bilirubin 1.0, Aspartate Amino Transf (AST/SGOT) 32, Alanine Aminotransferase (ALT/SGPT) 30, Alkaline Phosphatase 78, Troponin I < 0.028, Total Protein 7.2, Albumin 4.5 08/04/21 23:47: Urine Color YELLOW, Urine Clarity SL CLOUDY, Urine pH 5.5, Urine Specific [place] 1.015L, Urine Protein NEGATIVE, Urine Glucose (UA) NEGATIVE, Urine Keto vincent 1+H, Urine Nitrite NEGATIVE, Urine Bilirubin NEGATIVE, Urine Urobilinogen 0.2, Urine Leukocyte Esterase NEGATIVE, Urine RBC (Auto) NEGATIVE, Urine RBC NONE, Urine WBC NONE, Urine Squamous Epithelial Cells 2-5, Urine Crystals NONE, Urine Bacteria NEGATIVE, Urine Casts NONE, Urine Mucus MODERATEH, Urine Culture Indicated NO 08/05/21 01:07: White Blood Count 10.3, Red Blood Count 4.02L, Hemoglobin 13.3, Hematocrit 40, Mean Corpuscular Volume 99, Mean Corpuscular Hemoglobin 33, Mean Corpuscular Hemoglobin Concent 34, Red Cell Distribution Width 12.9, Platelet Count 205, Mean Platelet Volume 9.8 08/05/21 05:30: White Blood Count 10.6, Red Blood Count 4.10L, Hemoglobin 13.6, Hematocrit 40, Mean Corpuscular Volume 98, Mean Corpuscular Hemoglobin 33, Mean Corpuscular Hemoglobin Concent 34, Red Cell Distribution Width 12.8, Platelet Count 237, Mean Platelet Volume 9.9, Immature Granulocyte % (Auto) 0, Neutrophils (%) (Auto) 75, Lymphocytes (%) (Auto) 18, Monocytes (%) (Auto) 6, Eosinophils (%) (Auto) 0, Basophils (%) (Auto) 0, Neutrophils # (Auto) 8.0H, Lymphocytes # (Auto) 1.9, Monocytes # (Auto) 0.7, Eosinophils # (Auto) 0.0, Basophils # (Auto) 0.0, Immature Granulocyte # (Auto) 0.0, Sodium Level 141, Potassium Level 3.8, Chloride Level 103, Carbon Dioxide Level 23, Anion Gap 15H, Blood Urea Nitrogen 26H, Creatinine 0.87, Estimat Glomerular Filtration Rate 83, BUN/Creatinine Ratio 30, Glucose Level 115H, Calcium Level 10.3H, Corrected Calcium 9.9, Total Bilirubin 1.1H, Aspartate Amino Transf (AST/SGOT) 35H, Alanine Aminotransferase (ALT/SGPT) 32, Alkaline Phosphatase 79, Total Protein 7.2, Albumin 4.5, Triglycerides Level 50, Cholesterol Level 141, LDL Cholesterol Direct 70, VLDL Cholesterol 10, HDL Cholesterol 56 Laboratory Tests 08/04/21 21:25 08/05/21 01:07 08/05/21 05:30 Radiology NAME: SASHA JIMÉNEZ [facility] REC#: [id number] PT STATUS: ADM Gómez : 1935 PHYSICIAN: LYNN YU DO ADMIT DATE: 08/04/21 Draft Date of Exam:08/05/21 US CAROTID PIETER COMPLETE [id number] PROCEDURE: US carotid duplex, bilateral. TECHNIQUE: Multiple real-time grayscale images were obtained over the carotid arteries in various projections, bilaterally. Additional spectral analysis and color Doppler duplex images were also obtained. INDICATION: Parameters based on the consensus panel Aggarwal-Scale and Doppler ultrasound criteria published September 2003, Radiology, Volume 229. DOPPLER (peak systolic velocity M/S Right Left CCA 1.06 1.31 ICA Proximal 0.79 1.29 ICA Mid 1.36 1.01 ICA Distal 1.14 .68 RATIO 1.28 .98 ECA 1.10 .94 VERT .55 .56 There is significant plaque seen throughout the bilateral common carotid arteries, carotid bifurcations, extending into the internal and external carotid arteries. Waveforms are normal. There is normal antegrade flow within both vertebral arteries. IMPRESSION: 1. 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 2. There is 50-69% stenosis of the left internal carotid artery by velocity criteria. Dictated on workstation # [id number] Dict: 08/05/21819 Trans: 08/05/21843 CVB [id number] Interpreted by: MEGAN PANIAGUA DO Electronically signed by: NAME: SASHA JIMÉNEZ [facility] REC#: [id number] PT STATUS: REG ER : 1935 PHYSICIAN: RADHA MERA APRN ADMIT DATE: 08/04/21/ER Signed Date of Exam:08/04/21 CT ANGIO HEAD/NECK PROCEDURE: CT angiography of the head and CT angiography of the neck with and without contrast. TECHNIQUE: Contiguous noncontrast images were obtained from the skull base through the vertex. After intravenous contrast administration, helical CT angiography of the neck was performed. Source data was reformatted into 3D MIP projections. Delayed post contrast acquisition was also obtained. Auto Exposure Controls were utilized during the CT exam to meet ALARA standards for radiation dose reduction. INDICATION: Weakness, dizziness, head pain. FINDINGS: Delayed postcontrast enhanced head CT showed atrophy and patchy periventricular white matter disease but no mass or abnormal enhancement. Following contrast, there is enhancement of the major dural venous sinuses. CT angiogram neck: Visualized pulmonary apices showed centrilobular emphysema and some biapical pleural-parenchymal scarring. Atherosclerotic aorta is patent. The branching pattern of the great vessels normal. The subclavian arteries patent. The bilateral cervical vertebral arteries showed mild non-stenosing scattered calcified plaque. The vessels are codominant and no hemodynamically significant stenosis. Common carotids patent with mild scattered plaque without significant stenosis. The carotid bulbs and bifurcations reveal left greater than right predominantly calcified plaque. Just beyond its bifurcation the left ICA is narrowed by about 50-60%, the right narrowed by less than 50%. Mid to distal cervical ICAs widely patent. CT angiogram head: There is left greater than right intradural vertebral atherosclerotic calcified plaque. The density of a calcified plaque in the left vertebral obscures from visualization its lumen beyond the calcified plaque there is wide patency and opacification of the vessels lumen. The bilateral MUFFLE WORKER segments opacified and unremarkable. There is calcified plaque in the cavernous segments of the intracranial carotids both of which have stenoses of 50% or less. The A1 segments and the paired anterior cerebral arteries normal. The bilateral middle cerebral arterial segments and their primary branches are patent. No large vessel occlusion, thrombus or filling defects seen. There is no aneurysm or vascular malformation. IMPRESSION: Cervical and intracranial predominantly calcified atherosclerotic disease without high-grade stenosis, large vessel occlusion, thrombus, aneurysm or acute appearing arterial pathology. Dictated by: Dictated on workstation # [id number] Dict: 08/04/21 [id number] Trans: 08/05/21 [facility] [id number] Interpreted by: BEAU TRIANA Electronically signed by: BEAU TRIANA 08/05/21 0000 ECG Impression ECG Initial ECG Rhythm: Normal Sinus A/P-Cardiology Assessment/Admission Diagnosis TIA vs CVA - management per medical services Palpitations - undetermined etiology Carotid dz - Carotid sclerosis with 50-69% stenosis of the right internal carotid artery by velocity criteria. There is 50-69% stenosis of the left internal carotid artery by velocity criteria. Per u/s of 08-05-21 HTN HLD H/O bladder cancer - treated by Dr. Newman H/O BPH - H/O TURP H/O tobaccoism - quit greater than 50 yrs ago GERD Alzheimer's with dementia Discussion and Recomendations TIA vs CVA - mangement per Dr. Yu and stroke team MRA of the head later today Carotid dz - already started on Plavix Palpitations - continue tele to eval for possible arrhythmia Continue home medications Monitor lab Further recs will be based on his hospital course We would like to thank Dr. Yu for this consult Clinical Quality Measures Stroke: Date of last known well: Aug 04, 2021 Time of last known well: 20:00 Symptoms onset unknown: No NASRA SALDIVAR L TOOL MACHINIST Aug 05, 2021 11:08
--- NOTE | 2021-08-05 11:32 | History & Physical-Hospitalist ---
ANAMARIAASIA 08/05/21 1132: History of Present Illness HPI/Chief Complaint CC: TIA HPI: Juan Jiménez is an 86 yo male with a history of Alzheimer's disease, and hypertension, who presents for evaluation and management of a TIA. It is reported that last night (08/04/2021) Juan experienced a THOMPSON, slurred speech, dizziness, after which he proclaimed "I do not feel right,"while grabbing his head. He sat down in a chair, slumped to the left, and started drooling; this prompted his daughter to call EMS. He currently does not exhibit any gross neurological deficits (no facial asymmetry, no weakness), though he does have mildly altered mentation (A&O x2), dementia, as well as moderate restlessness. Currently, he is able to ambulate with minimal assistance, and was able to evacuate his bowels at 9:00am. Juan is presently NPO until MRI of head and swallow study is completed. He received 0.5 mg of Ativan through IV to address his restlessness prior to imaging. Dr. Llanos was consulted to assess possible etiologies of Juan's CC, and determined he has 50-59% bilateral carotid stenosis. Currently, his and daughter are at his bedside. Source: patient, RN/MD Exam Limitations: clinical condition (Altered mentation) Date Seen 08/05/21 Attending Physician Lynn Yu DO PCP No,Local Physician Referring Physician Date of Admission Aug 04, 2021 at 23:05 Home Medications & Allergies Home Medications Reviewed patient Home Medication Reconciliation performed by pharmacy medication reconciliations floor technician and/or nursing. Patients Allergies have been reviewed. Allergies Allergies Coded Allergies No Known Drug Allergies (Verified05/28/08) Past Cmqckcp-Gkphvd-Lldiyo Hx Patient Social History Marrital Status: Employed/Student: retired Tobacco Use?: No Tobacco type used: Cigarettes Smoking Status: Former Smoker Smokeless Tobacco Frequency: Never a User Use of E-Cig and/or Vaping dev: No Substance use?: No Alcohol Use?: Yes Alcohol type: Beer Alcohol Frequency: Rarely Pt feels they are or have been: No Immunizations Up To Date Date of Influenza Vaccine: Aug 08, 2018 First/Initial COVID19 Vaccinat: 01/19 Second COVID19 Vaccination Dennis: 01/19 Tetanus Booster (TDap): Unknown Hepatitis A: No Hepatitis B: No Date of Pneumonia Vaccine: Aug 09, 2017 Seasonal Allergies Seasonal Allergies: Yes Current Status Advance Directives: No Communicates: Verbally Primary Language: British Preferred Spoken Language: British Is interpretation needed?: No Sensory deficits: Vision impairment, Hearing impairment Implanted or Applied Medical D: None Past Medical History Surgeries: Gallbladder, Transurethral Resection Dementia Sexually Transmitted Disease: No HIV/AIDS: No Prostate Problems Chronic Constipation, Ulcer Arthritis Loss of Vision: Bilateral Hearing Impairment: Hard of Hearing, Bilateral Hearing Aide Bladder What Type of Treatment Did You: Surgical Intervention Blood Disorders: No Adverse Reaction/Blood Tranf: No (N/A) Physical Exam Physical Exam Vital Signs Vital Signs - First Documented 08/04/21 08/04/21 08/05/21 21:10 21:26 02:04 Temp 36.3 Pulse 72 Resp 20 B/P (MAP) 131/58 Pulse Ox 97 O2 Delivery Room Air FiO2 21 Capillary Refill : Less Than 3 Seconds Height, Weight, BMI Height: 5'1.00" Weight: 104lbs. 6.0oz. 47.188643wo; 16.93 BMI Method:Stated General Appearance: No Apparent Distress, Chronically ill, Cachetic, Thin Eyes: Right Eye Normal Inspection, Right Eye PERRL HEENT: PERRL/EOMI Results Results/Procedures Labs Laboratory Tests 08/04/21 21:25 08/05/21 01:07 08/05/21 05:30 Patient resulted labs reviewed. Imaging: Reviewed Imaging Report Imaging US Carotid Duplex, bilaterally IMPRESSION: 1. 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 2. There is 50-69% stenosis of the left internal carotid artery by velocity criteria. Neck MRA: IMPRESSION: 1. No focal stenosis or dissection in the bilateral carotid and vertebral systems. Head MRA IMPRESSION: 1. No evidence of stenosis or aneurysm in the [place]. No large vessel occlusion. Meds Inpatient Medications Item Value Date Time Atorvastatin 80 mg 08/05/21 2100 Calcium HS/PO (Lipitor Tablet) Lorazepam 0.5 mg 08/05/21 1030 (Ativan ONCE PRN/IVP Injection) Lorazepam 2 mg 08/05/21 1005 (Ativan STK-MED ONCE/.ROUTE Injection) Lorazepam 0.5 mg 08/05/21 1000 (Ativan ONCE PRN/IVP 08/05/21 1040 Injection) Enoxaparin Sodium 30 mg 08/05/21 0900 (Lovenox DAILY/SC 08/05/21 0827 Injection) Aspirin 300 mg 08/05/21 0900 (Aspirin DAILY PRN/AR Suppository) Clopidogrel 75 mg 08/05/21 0900 Bisulfate DAILY/PO 08/05/21 1422 (Plavix Tablet) Famotidine 20 mg 08/05/21 0900 (Pepcid Tablet) DAILY/PO 08/05/21 1422 Albuterol Sulfate 2.5 mg 08/05/21 0215 (Proventil RTQ4HR PRN/INH Pre-Mix Nebs (Rt)) Acetaminophen 650 mg 08/05/21 0145 (Tylenol Q4H PRN/AR Suppository) Fentanyl Citrate 25 mcg 08/05/21 0130 (Sublimaze Q4H PRN/IV Injection) Acetaminophen 650 mg 08/05/21 0130 (Tylenol Tablet) Q4H PRN/PO Ondansetron HCl 4 mg 08/05/21 0130 (Zofran Q6H PRN/IV Injection (Sdv)) Enalaprilat 1.25 mg 08/05/21 0130 (Vasotec Q6H PRN/IV Injection) Sodium Chloride 100 ml 08/04/21 2330 (Sodium Chloride ONCE ONCE/IV 08/04/21 233 0.9% Ivpb Bag) Sodium Chloride 1,000 ml @ 50 mls/hr 08/05/21 0130 Sodium Chloride 10 ml 08/04/21 2330 (Catheter Flush NEEDED PRN/IV 08/04/21 233 Syringe) Iohexol 100 ml 08/04/21 2330 (Omnipaque 350 ONCE ONCE/IV 08/04/21 2333 Mg/ml 100 ml) Miscellaneous 08/04/21 233 (Hold Metformin- UD/IV Contrast Received) Assessment/Plan Admission Diagnosis TIA Admission Status: Inpatient Order (span 2 midnights) Reason for Inpatient Admission: TIA Assessment and Plan Assessment and Plan: 1. TIA, with temporary neurological deficits, 2/2 to bilateral carotid stenosis Monitor closely for neurological changes Continue anti-platelet medication with Clopidogrel Continue statin therapy with Atorvastatin Maintain BP control, and monitor daily Maintain BG WNL Work with PT to assess for weakness, and muscle strengthening Regular aerobic physical activity as tolerated 2. Alzheimer's Disease Consider assisted living or in-home healthcare Consult social services assistant to address low BMI, and low caloric intake Consider neurological consult from Jaqueline Astorga 3. HTN Continue BP medication Maintain good BP control Critical Care Critically Ill Patient Clinical Quality Measures Stroke: Date of last known well: Aug 04, 2021 Time of last known well: 20:00 Symptoms onset unknown: No LYNN YU DO 08/06/21 0526: History of Present Illness HPI/Chief Complaint CC: TIA HPI: This is an 86yoWM who presented with signs of stroke but ultimately resolved, in need of further evaluation for stroke risk factors. Cardiology has been consulted. MRI will be obtained after Ativan given, and dementia all complicate the issues. At this current time, Pt denies any pain. Source: patient, RN/MD Exam Limitations: clinical condition (Altered mentation) Time Seen by a Provider: 11:00 Past Hoqbqwh-Gjaoal-Xksluk Hx Patient Social History Marrital Status: Employed/Student: retired Past Medical History High Cholesterol, Hypertension Dementia Review of Systems Constitutional: see HPI Physical Exam Physical Exam General Appearance: No Apparent Distress, Chronically ill Eyes: Right Eye Normal Inspection, Right Eye PERRL HEENT: PERRL/EOMI, Normal ENT Inspection, Pharynx Normal, Moist Mucous Membranes Neck: Full Range of Motion, Normal Inspection, Non Tender Respiratory: Chest Non Tender, Lungs Clear, Normal Breath Sounds, No Accessory Muscle Use, No Respiratory Distress Cardiovascular: Regular Rate, Rhythm, No Edema, No Gallop, No JVD, No Murmur, Normal Peripheral Pulses Gastrointestinal: Normal Bowel Sounds, No Organomegaly, No Pulsatile Mass, Non Tender, Soft Back: Normal Inspection, No CVA Tenderness, No Vertebral Tenderness Extremity: Normal Capillary Refill, Normal Inspection, Normal Range of Motion, Non Tender, No Calf Tenderness, No Pedal Edema Neurologic/Psychiatric: Alert, No Motor/Sensory Deficits, Normal Mood/Affect, Disoriented Skin: Normal Color, Warm/Dry Lymphatic: No Adenopathy Assessment/Plan Admission Diagnosis Assessment: TIA Dementia Hypertension Hyperlipidemia Plan: Cardiology consult Echo Carotid ultrasound MRI Admission Status: Observation Reason for Inpatient Admission: TIA Supervisory-Addendum Brief Verification & Attestation Participated in pt care: history, MDM, physical Personally performed: exam, history, MDM, supervision of care Care discussed with: Medical Student Procedures: n/a Results interpretation: Verified all documentation Verification and Attestation of Medical Student E/M Service A medical student performed and documented this service in my presence. I reviewed and verified all information documented by the medical student and made modifications to such information, when appropriate. I personally performed the physical exam and medical decision making. Lynn Yu, Aug 06, 2021,05:26 ASIA CONRAD Aug 05, 2021 11:32 LYNN YU DO Aug 06, 2021 05:26
[2021-08-05] MEDS ORDERED: ATOR20TA66 PO (11:44)
[2021-08-05] MEDS ORDERED: AMLO-251 PO (11:44)
[2021-08-05] MEDS ORDERED: DONE5TAB30 PO (11:44)
[2021-08-05] MEDS ORDERED: CHOL200014 PO (11:49)
[2021-08-05] MEDS ORDERED: UBID100C44 PO (11:50)
[2021-08-05] MEDS: CLOPIDOGREL 75 MG (PLAVIX) TABLET PO SCH (14:22)
[2021-08-05] MEDS: FAMOTIDINE 20 MG (PEPCID) TABLET PO SCH (14:22)
--- NOTE | 2021-08-05 14:22 | Occupational Therapy Eval ---
OT Evaluation-General/PLF Medical Diagnosis Admission Date Aug 04, 2021 at 23:05 Medical Diagnosis: TIA Onset Date: Aug 04, 2021 Therapy Diagnosis Therapy Diagnosis: decreased ADL status Height/Weight Height (Feet): 5 Height (Inches): 1.00 Weight (Pounds): 104 Weight (Ounces): 6.0 Precautions Precautions/Isolations: Fall Prevention, Standard Precautions Referral Physician: Vielka Referral Reason: Evaluation/Treatment Medical History Pertinent Medical History: Dementia, HTN Current History ED due to THOMPSON, slurred speech, dizziness Social History Home: Single Level Current Living Status: Spouse Pt's daughter indicates pt is going to live with her at discharge. ADL-Prior Level of Function SCALE: Activities may be completed with or without assistive devices. 0-Gtpmptvlne-elhfwiy completes the activity by him/herself with no assistance from a helper. 5-Set-up or Clean-up Assistance-helper sets up or cleans up; patient completes activity. [place] assists only prior to or following the activity. 4-Supervision or Touching Assistance-helper provides verbal cues and/or to uching/steadying and/or contact guard assistance as patient completes activity. Assistance may be provided throughout the activity or intermittently. 3-Partial/Moderate Assistance-helper does LESS THAN HALF the effort. [place] lifts, holds or supports trunk or limbs, but provides less than half the effort. 2-Substantial/Maximal Assistance-helper does MORE THAN HALF the effort. [place] lifts or holds trunk or limbs and provides more than half the effort. 2-Ftijcvkdz-mrjkpg does ALL the effort. Patient does none of the effort to complete the activity. Or, the assistance of 2 or more helpers is required for the patient to complete the activity. If activity was not attempted, code reason: 7-Patient Refused. 9-Not Applicable-not attempted and the patient did not perform the activity before the current illness, exacerbation or injury. 10-Not Attempted due to Environmental Limitations-(lack of equipment, weather restraints, etc.). 88-Not Attempted due to Medical Conditions or Safety Concerns. ADL PLOF Comments Pt unable to provide information about PLOF, daughter and present. They indicate pt was able to bathe,dress and toilet independently at PLOF, able to hold a conversation and answer questions. Self Care: Independent Functional Cognition: Needed Some Help OT Current Status Subjective Pt laying in bed, and daughter present. Pt's family states OK for OT at this time. Pt very confused throughout tx, unable to answer OT questions and difficulty with following instructions provided by OT and daughter. Mental Status/Objective Patient Orientation: Person, Non-Verbal/Aphasic, [place] Attachments: IV Current Upper Extremity ROM pt unable to follow instructions to assess. Upper Extremity Strength Pt unable to follow instructions to assess ADL-Treatment Eating (QC): 88 (Pt NPO at time of OT evaluation) Toileting Hygiene (QC): 1 (Total assist to manage clothing, pt instructed to urinate but unable to follow instructions.) Other Treatments Pt laying in bed, easily awoken and agreeable to OT evaluation. OT asked if pt needed to use bathroom, pt had difficulty answering OT question but eventually shook his head. OT assisted pt to EOB, pt had difficulty following instructions, required assistance with BLEs and trunk to EOB. OT donned gait belt and placed FWW in front of pt, pt instructed to stand, but with tactile and verbal cues, unable to follow instructions. Daughter present, attempted to instruct pt as well, but pt still unable to follow instructions. With moderate assistance, pt able to perform sit to stand from EOB to FWW. Pt performed functional mobility from EOB to bathroom, assist from OT in the back for balance, pt's daughter positioned in the front to guide pt to the bathroom. Pt appeared to follow daughters instructions better than OTs, and he jokingly gestured with daughter throughout session. Daughter states pt is ornery. Pt postioned in front of toilet, instructed to sit. Pt would not bend knees in order to sit on toilet. OT guided pt to where he was facing the toilet, again instructing him to urinate, he would not follow instructions. Pt would not answer OT or daughters questions when asked if he needed to toilet. OT managed pt's pants up, guided pt back to walker and assisted him to recliner. Post tx, pt seated in recliner, call light in reach and all needs met, chair alarm on. Family at his side. Education OT Patient Education: Correct positioning, Modified ADL techniques, Progress toward Goal/Update tx plan, Purpose of tx/functional activities Teaching Recipient: Patient Teaching Methods: Demonstration, Discussion Response to Teaching: Unable to Return Demonstration, Unable to Comprehend OT Welfare Aide Goals Fdc Goals Time Frame: Aug 15, 2021 Eating (QC): 6 Oral Hygiene (QC): 6 Toileting Hygiene (QC): 4 Shower/Bathe Self (QC): 4 Upper Body Dressing (QC): 5 Lower Body Dressing (QC): 4 On/Off Footwear (QC): 4 Additional Goals: 1-Demonstrate ADL Tasks, 2-Verbalize Understanding, 3- ImproveStrength/Melva 1=Demonstrate adherence to instructed precautions during ADL tasks. 2=Patient will verbalize/demonstrate understanding of assistive devices/modifications for ADL. 3=Patient will improve strength/tolerance for activity to enable patient to perform ADL's. OT Education/Plan Problem List/Assessment Assessment: Decreased Activ Tolerance, Decreased Safety Aware, Decreased UE Strength, Impaired Cognition, Impaired Funct Balance, Impaired I ADL's, Impaired Self-Care Skills Discharge Recommendations Plan/Recommendations: Continue POC Treatment Plan/Plan of Care Patient would benefit from OT for education, treatment and training to promote independence in ADL's, mobility, safety and/or upper extremity function for ADL's. Plan of Care: ADL Retraining, Cognitive Retraining, Functional Mobility, UE Funct Exercise/Act Treatment Duration: Aug 15, 2021 Frequency: 5 times per week Estimated Hrs Per Day: .25 hour per day Rehab Potential: Fair Time/GCodes Start Time: 13:55 Stop Time: 14:10 Total Time Billed (hr/min): 15 Billed Treatment Time 1, ANTWON VIDES OT Aug 05, 2021 14:21
--- NOTE | 2021-08-05 14:23 | Diagnostic Imaging Report ---
PROCEDURE: MR angiography of the brain without the use of contrast. TECHNIQUE: 3D [id number] non contrast enhanced MR angiography of the head was performed. A source data was reformatted into rotating MIP projections. INDICATION: Confusion. Concern for TIA. COMPARISON: 08/04/2021. FINDINGS: There is normal flow-related enhancement within the intracranial portion of the bilateral ICA without evidence of stenosis or aneurysm. The bilateral RENATE, MCA, and SALES SUPERINTENDENT demonstrate intact flow-related enhancement. No stenosis or aneurysm in the [place]. The vertebral arteries are codominant. The basilar artery is normal in course and caliber without stenosis or aneurysm. IMPRESSION: 1. No evidence of stenosis or aneurysm in the [place]. No large vessel occlusion. Dictated by: Dictated on workstation # [id number]
--- NOTE | 2021-08-05 14:29 | Diagnostic Imaging Report ---
PROCEDURE: MR angiography neck without contrast. TECHNIQUE: Non contrast enhanced MR angiography of the neck was performed. Source data was reformatted into rotating MIP projections. INDICATION: Confusion. Concern for TIA. COMPARISON: 08/04/2021. FINDINGS: There is a conventional branching pattern of the great vessels of the aortic arch. The bilateral common carotid arteries have a normal course and caliber without stenosis or dissection. There is atherosclerotic plaque in the bilateral carotid bulbs and proximal internal carotid arteries without flow-limiting stenosis. No evidence of dissection in the bilateral internal carotid arteries. The external carotid arteries are visualized and are unremarkable. The vertebral arteries are codominant. No focal stenosis or dissection in the bilateral vertebral arteries. IMPRESSION: 1. No focal stenosis or dissection in the bilateral carotid and vertebral systems. Dictated by: Dictated on workstation # [id number]
--- NOTE | 2021-08-05 17:13 | Consultation-Cardiology ---
HPI-Cardiology Cardiology Consultation: Date of Consultation 08/05/21 Time Seen by a Provider: 16:15 Date of Admission Attending Physician Lynn Vora DO Admitting Physician No,Local Physician Consulting Physician LUKE GERMAN MD, MA, FACP, FACC, FSCAI, CCDS HPI: Chief Complaint: TIA Mr. Jiménez is an 86 yr old male admitted to [facility] from the ED with possible TIA vs CVA. He has dementia and Alzeheimers and is unable to provide any information. His daughter and are at the bedside. They report yesterday he was helping to carry in groceries earlier in the day when he reported SOB, abd distension and fatigue. She states later in the day he was helping in the kitchen when he grabbed his head and c/o feeling dizzy. He sat down in a chair and slumped to the left side and began drooling and they were unable to get him to answer them. Daughter states she called EMS. She states after several minutes he c/o needing to have a BM. She reports he was becoming more responsive so she helped him to ambulate to the . She reports while he was ambulating he began to have profuse drooling and his words were slurred. She reports he c/o occ palpitations with exertion which improve with rest. She reports he has not reported any c/o CP. No vomiting or diarrhea. She reports no weakness or facial asymmetry. NOS-Wyvneh-Uwruuo Hx Patient Social History Marrital Status: Employed/Student: retired Smoking Status: Former Smoker 2nd Hand Smoke Exposure: Yes Have you traveled recently?: No Alcohol Use?: Yes Pt feels they are or have been: No Tobacco type used: Cigarettes Immunizations Up To Date Date of Pneumonia Vaccine: Aug 09, 2017 Date of Influenza Vaccine: Aug 08, 2018 Past Medical History PMH As described under Assessment. Family Medical History Family Medical History: Daughter reports his mother had a CVA. Allergies and Home Medications Allergies Coded Allergies: No Known Drug Allergies (Verified , 05/28/08) Patient Home Medication List Home Medication List Reviewed: Yes Amlodipine Besylate (Amlodipine Besylate) 10 Mg Tablet, 10 MG PO DAILY, (Reported) Entered as Reported by: ЕЛЕНА BRIZUELA on 08/05/21 1144 Last Action: Reviewed Atorvastatin Calcium (Atorvastatin Calcium) 20 Mg Tablet, 20 MG PO DAILY, (Reported) Entered as Reported by: ЕЛЕНА BRIZUELA on 08/05/21 1144 Last Action: Reviewed Cholecalciferol (Vitamin D3) (Vitamin D3) 50 Mcg Tablet, 50 MCG PO DAILY, (Reported) Entered as Reported by: ЕЛЕНА BRIZUELA on 08/05/21 1149 Last Action: Reviewed Donepezil HCl (Donepezil HCl) 5 Mg Tablet, 5 MG PO HS, (Reported) Entered as Reported by: ЕЛЕНА BRIZUELA on 08/05/21 1144 Last Action: Reviewed Lisinopril (Lisinopril) 10 Mg Tablet, 10 MG PO DAILY, (Reported) Entered as Reported by: KODI LESTER on 01/13/19 111 Last Action: Reviewed Multivitamin (Multi-Vitamin Daily) 1 Each Tablet, 1 EACH PO DAILY, (Reported) Entered as Reported by: KODI LESTER on 01/13/191109 Last Action: Reviewed Ubidecarenone (Co Q-10) 100 Mg Capsule, 100 MG PO DAILY, (Reported) Entered as Reported by: ЕЛЕНА BRIZUELA on 08/05/21 1150 Last Action: Reviewed Discontinued Medications Cyanocobalamin (Vitamin B-12) (Vitamin B12) 2,500 Mcg Tablet, 2,500 MCG PO DAILY, (Reported) Discontinued Reason: No Longer Taking Entered as Reported by: KODI LESTER on 01/13/191109 Last Action: Discontinued Simvastatin (Simvastatin) 80 Mg Tablet, 40 MG PO DAILY, (Reported) Discontinued Reason: No Longer Taking Entered as Reported by: KODI LESTER on 01/13/191109 Last Action: Discontinued Terazosin HCl (Terazosin HCl) 5 Mg Capsule, 5 MG PO HS, (Reported) Discontinued Reason: No Longer Taking Entered as Reported by: KODI LESTER on 01/13/191109 Last Action: Discontinued Physical Exam-Cardiology Physical Exam Vital Signs/I&O 08/05/21 08/05/21 08/05/21 08/05/21 06:46 07:39 08:00 08:35 Temp 36.5 Pulse 76 79 Resp 18 B/P (MAP) 133/61 (85) Pulse Ox 97 O2 Delivery Room Air Room Air Room Air 08/05/21 08/05/21 08/05/21 12:15 13:00 16:00 Temp 36.5 36.0 Pulse 75 60 69 Resp 18 18 B/P (MAP) 130/59 (82) 129/69 (89) Pulse Ox 95 O2 Delivery Room Air Room Air Capillary Refill : Less Than 3 Seconds Constitutional: No AAO x 3 (opens eyes and answers to his name only); other (thin, frail) HEENT: PERRL, hard of hearing Neck: carotid bruit, carotid pulses are 2 + bilaterally Respiratory: No accessory muscle use, No respiratory distress; chest expansion is symmetric, chest is bilaterally symmetric, lungs clear to auscultation Cardiovascular: regular rate-rhythm; No JVD; S1 and S2 Gastrointestinal: No tender; soft, round, audible bowel sounds Extremities: no lower extremity edema bilateral Neurologic/Psychiatric: other (poor recent memory; mildly confused, seems to be able to move all limbs equally, 4/5 power in both hands) Skin: No rash on exposed areas, No ulcerations on exposed areas Data Review Labs Laboratory Tests 08/04/21 21:25: White Blood Count 10.7, Red Blood Count 4.17L, Hemoglobin 13.8, Hematocrit 42, Mean Corpuscular Volume 100H, Mean Corpuscular Hemoglobin 33, Mean Corpuscular Hemoglobin Concent 33, Red Cell Distribution Width 12.9, Platelet Count 220, Mean Platelet Volume 9.9, Immature Granulocyte % (Auto) 0, Neutrophils (%) (Auto) 85H, Lymphocytes (%) (Auto) 9L, Monocytes (%) (Auto) 5, Eosinophils (%) (Auto) 0, Basophils (%) (Auto) 0, Neutrophils # (Auto) 9.0H, Lymphocytes # (Auto) 1.0, Monocytes # (Auto) 0.6, Eosinophils # (Auto) 0.0, Basophils # (Auto) 0.0, Immature Granulocyte # (Auto) 0.0, Prothrombin Time 14.1, INR Comment 1.0, Activated Partial Thromboplast Time 30, D-Dimer 0.48, Sodium Level 142, Potassium Level 4.1, Chloride Level 102, Carbon Dioxide Level 23, Anion Gap 17H, Blood Urea Nitrogen 30H, Creatinine 1.30, Estimat Glomerular Filtration Rate 52, BUN/Creatinine Ratio 23, Glucose Level 137H, Calcium Level 10.8H, Corrected Calcium 10.4H, Total Bilirubin 1.0, Aspartate Amino Transf (AST/SGOT) 32, Alanine Aminotransferase (ALT/SGPT) 30, Alkaline Phosphatase 78, Troponin I < 0.028, Total Protein 7.2, Albumin 4.5 08/04/21 23:47: Urine Color YELLOW, Urine Clarity SL CLOUDY, Urine pH 5.5, Urine Specific [place] 1.015L, Urine Protein NEGATIVE, Urine Glucose (UA) NEGATIVE, Urine Ketones 1+H, Urine Nitrite NEGATIVE, Urine Bilirubin NEGATIVE, Urine Urobilinogen 0.2, Urine Leukocyte Esterase NEGATIVE, Urine RBC (Auto) NEGATIVE, Urine RBC NONE, Urine WBC NONE, Urine Squamous Epithelial Cells 2-5, Urine Crystals NONE, Urine Bacteria NEGATIVE, Urine Casts NONE, Urine Mucus MODERATEH, Urine Culture Indicated NO 08/05/21 01:07: White Blood Count 10.3, Red Blood Count 4.02L, Hemoglobin 13.3, Hematocrit 40, Mean Corpuscular Volume 99, Mean Corpuscular Hemoglobin 33, Mean Corpuscular Hemoglobin Concent 34, Red Cell Distribution Width 12.9, Platelet Count 205, Mean Platelet Volume 9.8 08/05/21 05:30: White Blood Count 10.6, Red Blood Count 4.10L, Hemoglobin 13.6, Hematocrit 40, Mean Corpuscular Volume 98, Mean Corpuscular Hemoglobin 33, Mean Corpuscular Hemoglobin Concent 34, Red Cell Distribution Width 12.8, Platelet Count 237, Mean Platelet Volume 9.9, Immature Granulocyte % (Auto) 0, Neutrophils (%) (Auto) 75, Lymphocytes (%) (Auto) 18, Monocytes (%) (Auto) 6, Eosinophils (%) (Auto) 0, Basophils (%) (Auto) 0, Neutrophils # (Auto) 8.0H, Lymphocytes # (Auto) 1.9, Monocytes # (Auto) 0.7, Eosinophils # (Auto) 0.0, Basophils # (Auto) 0.0, Immature Granulocyte # (Auto) 0.0, Sodium Level 141, Potassium Level 3.8, Chloride Level 103, Carbon Dioxide Level 23, Anion Gap 15H, Blood Urea Nitrogen 26H, Creatinine 0.87, Estimat Glomerular Filtration Rate 83, BUN/Creatinine Ratio 30, Glucose Level 115H, Calcium Level 10.3H, Corrected Calcium 9.9, Total Bilirubin 1.1H, Aspartate Amino Transf (AST/SGOT) 35H, Alanine Aminotransferase (ALT/SGPT) 32, Alkaline Phosphatase 79, Total Protein 7.2, Albumin 4.5, Triglycerides Level 50, Cholesterol Level 141, LDL Cholesterol Direct 70, VLDL Cholesterol 10, HDL Cholesterol 56 08/05/21 12:03: Glucometer 92 A/P-Cardiology Assessment/Admission Diagnosis TIA vs CVA - management per medical services Palpitations - undetermined etiology - Echo on 08/05/21: LVEF 55-60%, small to mod amount of pericardial fluid w/o any evidence of hemodynamic significance, mild to mod TR, PASP 40-45 mmHg Carotid dz - Carotid sclerosis with 50-69% stenosis of the right internal carotid artery by velocity criteria. There is 50-69% stenosis of the left internal carotid artery by velocity criteria. Per u/s of 08-05-21 HTN HLD H/O bladder cancer - treated by Dr. Newman H/O BPH - H/O TURP H/O tobaccoism - quit greater than 50 yrs ago GERD Alzheimer's with dementia Discussion and Recomendations Carotid dz - already started on Plavix Palpitations - continue tele to eval for possible arrhythmia Continue home medications Monitor lab Further recs will be based on his hospital course We would like to thank Dr. Vora for this consult Clinical Quality Measures Stroke: Date of last known well: Aug 04, 2021 Time of last known well: 20:00 Symptoms onset unknown: No LUKE GERMAN MD FACP FAC CCDS Aug 05, 2021 17:13
[2021-08-05] MEDS ORDERED: DONEPEZIL 5 MG (ARICEPT) TAB PO SCH (21:00)
[2021-08-05] MEDS ORDERED: ZIPRASIDONE 20 MG INJ (GEODON) VIAL IM PRN (21:45)
[2021-08-05] MEDS ORDERED: HALOPERIDOL 5 MG/ML (HALDOL) VIAL IM PRN (21:45)
[2021-08-05] MEDS ORDERED: WATER (STERILE) FOR INJ 10 ML BTL INJ SCH (21:45)
[2021-08-05] MEDS ORDERED: OLANZapine 5 MG (ZyPREXA) TAB PO SCH (21:45)
[2021-08-06 04:00] VITALS: BP 159/72
[2021-08-06 06:21] LABS: BASOPHILS % (AUTO) 1 % (0-10); EOSINOPHILS # (AUTO) 0.1 10^3/uL (0.0-0.3); EOSINOPHILS % (AUTO) 2 % (0-10); HEMATOCRIT 37 % (40-54); HEMOGLOBIN 12.2 g/dL (13.3-17.7); LYMPHOCYTES # (AUTO) 1.8 10^3/uL (1.0-4.0); LYMPHOCYTES % (AUTO) 24 % (12-44); MEAN CORPUSCULAR HEMOGLOBIN 33 pg (25-34); MEAN CORPUSCULAR HGB CONC 33 g/dL (32-36); MEAN CORPUSCULAR VOLUME 100 fL (80-99); MEAN PLATELET VOLUME 9.8 fL (9.0-12.2); MONOCYTES # (AUTO) 0.6 10^3/uL (0.0-1.0); MONOCYTES % (AUTO) 8 % (0-12); NEUTROPHILS # (AUTO) 4.9 10^3/uL (1.8-7.8); NEUTROPHILS % (AUTO) 65 % (42-75); PLATELET COUNT 190 10^3/uL (130-400); WHITE BLOOD COUNT 7.5 10^3/uL (4.3-11.0)
[2021-08-06 06:50] LABS: ALBUMIN 3.8 GM/DL (3.2-4.5)
[2021-08-06 06:51] LABS: POTASSIUM 3.4 MMOL/L (3.6-5.0)
[2021-08-06 06:52] LABS: CALCIUM 9.7 MG/DL (8.5-10.1)
[2021-08-06 06:55] LABS: BILIRUBIN,TOTAL 0.8 MG/DL (0.1-1.0)
[2021-08-06 06:57] LABS: CREATININE SERUM 0.79 MG/DL (0.60-1.30)
[2021-08-06 07:35] VITALS: BP 154/67
--- NOTE | 2021-08-06 08:46 | Occupational Ther Daily Note ---
OT Current Status-Daily Note Subjective Pt was lying in bed upon OT arrival. Pt stated he needed to use the restroom. Mental Status/Objective Patient Orientation: Person, Mumbles ADL-Treatment Therapy Code Descriptions/Definitions Functional Ness Measure: 0=Not Assessed/NA 4=Minimal Assistance 1=Total Assistance 5=Supervision or Setup 2=Maximal Assistance 6=Modified Ness 3=Moderate Assistance 7=Complete IndependenceSCALE: Activities may be completed with or without assistive devices. 3-Obugtxgddb-jcecjqh completes the activity by him/herself with no assistance from a helper. 5-Set-up or Clean-up Assistance-helper sets up or cleans up; patient completes activity. [place] assists only prior to or following the activity. 4-Supervision or Touching Assistance-helper provides verbal cues and/or touching/steadying and/or contact guard assistance as patient completes activity. Assistance may be provided throughout the activity or intermittently. 3-Partial/Moderate Assistance-helper does LESS THAN HALF the effort. [place] lifts, holds or supports trunk or limbs, but provides less than half the effort. 2-Substantial/Maximal Assistance-helper does MORE THAN HALF the effort. [place] lifts or holds trunk or limbs and provides more than half the effort. 3-Xpvemyymb-oflwre does ALL the effort. Patient does none of the effort to complete the activity. Or, the assistance of 2 or more helpers is required for the patient to complete the activity. If activity was not attempted, code reason: 7-Patient Refused. 9-Not Applicable-not attempted and the patient did not perform the activity before the current illness, exacerbation or injury. 10-Not Attempted due to Environmental Limitations-(lack of equipment, weather restraints, etc.). 88-Not Attempted due to Medical Conditions or Safety Concerns. Toileting Hygiene (QC): 4 (Pt performed toileting task while standing at [facility]. ) Other Treatment Pt was lying spine upon OT arrival. Pt stated he needed to use the bathroom. Pt moved from supine to EOB. OT placed gait belt on. Pt then transferred from EOB sit to stand and to toilet in bathroom w/ FWW at CGA w/ min skilled VCs. Pt performed toileting while standing, see QC above. Pt seemed a little off balance, slight retropulsion while standing sink-side (Min A) to wash hands requiring VCs to complete hand hygiene efficiently. Pt performed functional mobility w/ FWW at CGA x300'. Pt ran walker into objects on R side x2 during mobility, able to self correct with no LOB. Pt transferred to chair, stand to sit at [facility] w/ FWW. Pt requested he was ready for breakfast. OT assisted pt w/ placing his order by phone to kitchen. Pt was mumbling at the beginning of tx session, towards the end of the session able to speak much more clearly. Post tx, pt was seated in chair, seat alarm activated, call light in reach, and all needs met. Education OT Patient Education: Correct positioning, Energy conservation, Progress toward Goal/Update tx plan, Purpose of tx/functional activities, Reviewed precautions, Safety issues Teaching Recipient: Patient Teaching Methods: Discussion Response to Teaching: Verbalize Understanding OT Director Security Risk Management Goals Prison Goals Time Frame: Aug 15, 2021 Eating (QC): 6 Oral Hygiene (QC): 6 Toileting Hygiene (QC): 4 Shower/Bathe Self (QC): 4 Upper Body Dressing (QC): 5 Lower Body Dressing (QC): 4 On/Off Footwear (QC): 4 Additional Goals: 1-Demonstrate ADL Tasks, 2-Verbalize Understanding, 3- ImproveStrength/Melva 1=Demonstrate adherence to instructed precautions during ADL tasks. 2=Patient will verbalize/demonstrate understanding of assistive devices/modifications for ADL. 3=Patient will improve strength/tolerance for activity to enable patient to perform ADL's. OT Education/Plan Problem List/Assessment Assessment: Decreased Activ Tolerance, Decreased Safety Aware, Decreased UE Strength, Impaired Cognition, Impaired Coordination, Impaired Funct Balance, Impaired I ADL's, Impaired Self-Care Skills Discharge Recommendations Plan/Recommendations: Continue POC Treatment Plan/Plan of Care Patient would benefit from OT for education, treatment and training to promote independence in ADL's, mobility, safety and/or upper extremity function for ADL's. Plan of Care: ADL Retraining, Cognitive Retraining, Functional Mobility, UE Funct Exercise/Act Treatment Duration: Aug 15, 2021 Frequency: 5 times per week Estimated Hrs Per Day: .25 hour per day Rehab Potential: Fair Time/GCodes Start Time: 08:15 Stop Time: 08:30 Total Time Billed (hr/min): 15 Billed Treatment Time 1 Visit, ANTWON LAWRENCE OT Aug 06, 2021 08:46
[2021-08-06] MEDS ORDERED: NON-FORMULARY MEDICATION 1 EA EA (Ubidecarenone (Co Q-10) 100 MG) PO SCH (09:00)
[2021-08-06] MEDS ORDERED: MULTIVIT W/MINERALS TAB (THERAGRAN M) PO SCH (09:00)
[2021-08-06] MEDS ORDERED: VITAMIN D3 25 MCG (1,000 UNITS) TABLET PO SCH (09:00)
[2021-08-06] MEDS ORDERED: amLODIPine 10 MG (NORVASC) TAB PO SCH (09:00)
[2021-08-06] MEDS ORDERED: lisINopril 10 MG (PRINIVIL) TABLET PO SCH (09:00)
[2021-08-06] MEDS: FAMOTIDINE 20 MG (PEPCID) TABLET PO SCH (09:15)
[2021-08-06] MEDS: CLOPIDOGREL 75 MG (PLAVIX) TABLET PO SCH (09:15)
[2021-08-06] MEDS: ENOXAPARIN 30 MG/0.3 ML (LOVENOX) SYR SC SCH (09:16)
--- NOTE | 2021-08-06 09:32 | Physical Therapy Daily Note ---
PT Daily Note-Current Subjective Pt in bed upon arrival and agrees to tx. No c/o pain Mental Status Patient Orientation: Person, Confused Transfers SCALE: Activities may be completed with or without assistive devices. 6-Pvckuhftdq-xtvypig completes the activity by him/herself with no assistance from a helper. 5-Set-up or Clean-up Assistance-helper sets up or cleans up; patient completes activity. [place] assists only prior to or following the activity. 4-Supervision or Touching Assistance-helper provides verbal cues and/or touch ing/steadying and/or contact guard assistance as patient completes activity. Assistance may be provided throughout the activity or intermittently. 3-Partial/Moderate Assistance-helper does LESS THAN HALF the effort. [place] lifts, holds or supports trunk or limbs, but provides less than half the effort. 2-Substantial/Maximal Assistance-helper does MORE THAN HALF the effort. [place] lifts or holds trunk or limbs and provides more than half the effort. 7-Nnjtdumil-qspzpz does ALL the effort. Patient does none of the effort to complete the activity. Or, the assistance of 2 or more helpers is required for the patient to complete the activity. If activity was not attempted, code reason: 7-Patient Refused. 9-Not Applicable-not attempted and the patient did not perform the activity before the current illness, exacerbation or injury. 10-Not Attempted due to Environmental Limitations-(lack of equipment, weather restraints, etc.). 88-Not Attempted due to Medical Conditions or Safety Concerns. Lying to Sitting/Side of Bed(Q: 4 Sit to Stand (QC): 4 Gait Training Does the Patient Walk?: Yes Distance: 300' Walk 10 feet (QC): 4 Walk 50 ft with 2 Turns(QC): 4 Walk 150 ft (QC): 4 Gait Assistive Device: FWW Pt has slow, shuffling gait. Pt amb w/ FWW and CGA, VC to stay close to FWW. Treatments Pt supine to sit, amb to bathroom. Pt uses bathroom standing and washes hands Amber, slight unsteadiness w/ standing balance. Pt amb 300' in hallways CGA and sits in recliner in room. Pt remains in recliner with all needs met, call light in hand. Assessment Current Status: Good Progress Pt increasing strength and endurance. Has fair standing balance PT Director Of Cardiac Rehabilitation Goals Director Of Cardiac Rehabilitation Goals PT Director Of Cardiac Rehabilitation Goals Time Frame: Aug 09, 2021 Roll Left & Right (QC): 5 Sit to Lying (QC): 5 Lying-Sitting on Side/Bed(QC): 5 Sit to Stand (QC): 5 Chair/Ntf-ze-Habuf Xfer(QC): 5 Toilet Transfer (QC): 5 Walk 10 feet (QC): 5 Walk 50ft with 2 Turns (QC): 5 Walk 150 ft (QC): 5 PT Plan Treatment/Plan Treatment Plan: Continue Plan of Care Treatment Plan: Education, Functional Activity Melva, Functional Strength, Gait, Safety, Therapeutic Exercise, Transfers Treatment Duration: Aug 09, 2021 Frequency: 5 times per week Estimated Hrs Per Day: .25 hour per day Patient and/or Family Agrees t: Yes Time/GCodes Time In: 815 Time Out: 830 Total Billed Treatment Time: 15 Total Billed Treatment 1, GT BART GONZALEZ [employer] INVESTIGATOR Aug 06, 2021 09:32
[2021-08-06] MEDS ORDERED: FAMO20TA5 PO (11:08)
[2021-08-06] MEDS ORDERED: ATOR80TA76 PO (11:08)
[2021-08-06] MEDS ORDERED: CLOP75TA28 PO (11:08)
--- NOTE | 2021-08-06 11:08 | Discharge Summary ---
Discharge Summary Hospital Course Was the Problem List Reviewed?: Yes Problems/Dx: (1) TIA (transient ischemic attack) Status: Acute Hospital Course Date of Admission: Aug 04, 2021 at 23:05 Admission Diagnosis : Family Physician/Provider: No,Local Physician Date of Discharge: 08/06/21 Discharge Diagnosis: TIA, dementia, carotid stenosis Hospital Course: Hospital Course: Pt had an uneventful hospital course for 3 days when he was admitted for observation suspicion for stroke due to dysarthria and weakness. Workup included carotid ultrasound that showed b/l stenosis 50-69%. MRI did not show any evidence of stroke. Cardiology has been consulted. He will be placed on increased statin, placed on Plavix for TIA and he will be discharged but he does have significant dementia but family aware and wanting to take him home. Labs and Pending Lab Test: Laboratory Tests 08/05/21 12:03: Glucometer 92 08/05/21 18:21: Glucometer 136H 08/05/21 20:15: Glucometer 126H 08/05/21 23:57: Glucometer 126H 08/06/21 05:28: White Blood Count 7.5, Red Blood Count 3.70L, Hemoglobin 12.2L, Hematocrit 37L, Mean Corpuscular Volume 100H, Mean Corpuscular Hemoglobin 33, Mean Corpuscular Hemoglobin Concent 33, Red Cell Distribution Width 13.0, Platelet Count 190, Mean Platelet Volume 9.8, Immature Granulocyte % (Auto) 0, Neutrophils (%) (Auto) 65, Lymphocytes (%) (Auto) 24, Monocytes (%) (Auto) 8, Eosinophils (%) (Auto) 2, Basophils (%) (Auto) 1, Neutrophils # (Auto) 4.9, Lymphocytes # (Auto) 1.8, Monocytes # (Auto) 0.6, Eosinophils # (Auto) 0.1, Basophils # (Auto) 0.0, Immature Granulocyte # (Auto) 0.0, Sodium Level 140, Potassium Level 3.4L, Chloride Level 107, Carbon Dioxide Level 24, Anion Gap 9, Blood Urea Nitrogen 20H, Creatinine 0.79, Estimat Glomerular Filtration Rate 93, BUN/Creatinine Ratio 25, Glucose Level 91, Calcium Level 9.7, Corrected Calcium 9.9, Total Bilirubin 0.8, Aspartate Amino Transf (AST/SGOT) 32, Alanine Aminotransferase (ALT/SGPT) 27, Alkaline Phosphatase 66, Total Protein 6.0L, Albumin 3.8 08/06/21 06:12: Glucometer 111H Home Meds Active Reported Co Q-10 (Ubidecarenone) 100 Mg Capsule 100 Mg PO DAILY Vitamin D3 (Cholecalciferol (Vitamin D3)) 50 Mcg Tablet 50 Mcg PO DAILY Atorvastatin Calcium 20 Mg Tablet 20 Mg PO DAILY Amlodipine Besylate 10 Mg Tablet 10 Mg PO DAILY Donepezil HCl 5 Mg Tablet 5 Mg PO HS Multi-Vitamin Daily (Multivitamin) 1 Each Tablet 1 Each PO DAILY Lisinopril 10 Mg Tablet 10 Mg PO DAILY Assessment/Pt Instructions PCP in 1 week Discharge Planning: <30 minutes discharge planning Discharge Instructions Discharge Diet: No Restrictions Activity as Tolerated: Yes Discharge Physical Examination Vital Signs Vital Signs Date Time Temp Pulse Resp B/P (MAP) Pulse Ox O2 Delivery O2 Flow Rate FiO2 08/06/21 08:00 Room Air 08/06/21 07:55 99 08/06/21 07:35 36.4 93 18 154/67 (96) 08/05/21 02:04 21 General Appearance: No Apparent Distress, WD/WN, Chronically ill Allergies: Coded Allergies: No Known Drug Allergies (Verified , 05/28/08) Discharge Summary Date of Admission Aug 04, 2021 at 23:05 Date of Discharge Discharge Date: Aug 06, 2021 Admission Diagnosis Assessment: TIA Dementia Hypertension Hyperlipidemia Plan: Cardiology consult Echo Carotid ultrasound MRI Clinical Quality Measures Stroke: Date of last known well: Aug 04, 2021 Time of last known well: 20:00 Symptoms onset unknown: No NOMAN YU DO Aug 06, 2021 11:08
[2021-08-06 11:45] VITALS: BP 154/67
--- NOTE | 2021-08-06 14:44 | Progress Note ---
ASIA CONRAD 08/06/21 1444: Progress Note Juan Jiménez is an 86 yo male with a history of Alzheimer's disease, and hypertension, who presents for evaluation and management of a suspected TIA. On 08/04/2021, Juan experienced a THOMPSON, slurred speech, dizziness, after which he proclaimed "I do not feel right,"while grabbing his head. He sat down in a chair, slumped to the left, and started drooling; this prompted his daughter to call EMS. He currently does not exhibit any gross neurological deficits (no facial asymmetry, no weakness), though he does have altered mentation (A&O x2), dementia, as well as moderate restlessness. According to Dr. Llanos, Juan's head and Neck MRIs were negative for any evidence of stroke or aneurysm, though US revealed that he has 50-69% stenosis of internal carotids bilaterally. He has had poor appetite--but did eat after he was no longer NPO-- , has had regular bowel movements, and can sit upright in a chair, and ambulate with some assistance. PT reports that he has made good progress in his strength and endurance. OT states patient would benefit from OT for education, treatment and training to promote independence in ADL's, mobility, safety and/or upper extremity function for ADL's. Juan has difficulty communicating his history, but was able to verbalize that he is feeling okay. Over the course of his stay, Juan was accompanied by his and daughter. His daughter states that he and his will be living with her, so he will Juan will be closely monitored for any changes in his status. Juan is discharged today (08/06) with instruction to follow-up, and is to continue Plavix for stroke prophylaxis, as well as famotidine. LYNN YU DO 08/07/21 4624: Supervisory-Addendum Brief Verification & Attestation Participated in pt care: history, MDM, physical Personally performed: exam, history, MDM, supervision of care Care discussed with: Medical Student Procedures: n/a Results interpretation: Verified all documentation Verification and Attestation of Medical Student E/M Service A medical student performed and documented this service in my presence. I reviewed and verified all information documented by the medical student and made modifications to such information, when appropriate. I personally performed the physical exam and medical decision making. Lynn Yu, Aug 07, 2021,05:24 ASIA CONRAD Aug 06, 2021 14:44 LYNN YU DO Aug 07, 2021 05:24
--- NOTE | 2021-08-06 17:24 | Progress Note - Cardiology ---
Cardiology SOAP Progress Note Subjective: No cp or palp or syncope or focal weakness No n/v/d Gen weakness Objective: I&O/Vital Signs 08/06/21 08/06/21 08/06/21 08/06/21 07:00 07:35 07:55 08:00 Temp 36.4 Pulse 62 93 Resp 18 B/P (MAP) 154/67 (96) Pulse Ox 99 99 O2 Delivery Room Air Room Air Room Air 08/06/21 11:45 Temp 36.4 Pulse 93 Resp 18 B/P (MAP) 154/67 Pulse Ox 99 O2 Delivery Room Air 08/06/21 00:00 Intake Total 460 ml Balance 460 ml Weight (Pounds): 104 Weight (Ounces): 6.0 Weight (Calculated Kilograms): 47.239681 Constitutional: No AAO x 3 (opens eyes and answers to his name only); other (thin, frail) Respiratory: No accessory muscle use, No respiratory distress; chest expansion is symmetric, chest is bilaterally symmetric, lungs clear to auscultation Cardiovascular: regular rate-rhythm; No JVD; S1 and S2 Gastrointestional: No tender; soft, round, audible bowel sounds Extremities: no lower extremity edema bilateral Neurologic/Psychiatric: other (poor recent memory; mildly confused, seems to be able to move all limbs equally, 4/5 power in both hands) Skin: No rash on exposed areas, No ulcerations on exposed areas Results/Procedures: Labs Laboratory Tests 08/05/21 18:21: Glucometer 136H 08/05/21 20:15: Glucometer 126H 08/05/21 23:57: Glucometer 126H 08/06/21 05:28: White Blood Count 7.5, Red Blood Count 3.70L, Hemoglobin 12.2L, Hematocrit 37L, Mean Corpuscular Volume 100H, Mean Corpuscular Hemoglobin 33, Mean Corpuscular Hemoglobin Concent 33, Red Cell Distribution Width 13.0, Platelet Count 190, Mean Platelet Volume 9.8, Immature Granulocyte % (Auto) 0, Neutrophils (%) (Auto) 65, Lymphocytes (%) (Auto) 24, Monocytes (%) (Auto) 8, Eosinophils (%) (Auto) 2, Basophils (%) (Auto) 1, Neutrophils # (Auto) 4.9, Lymphocytes # (Auto) 1.8, Monocytes # (Auto) 0.6, Eosinophils # (Auto) 0.1, Basophils # (Auto) 0.0, Immature Granulocyte # (Auto) 0.0, Sodium Level 140, Potassium Level 3.4L, Chloride Level 107, Carbon Dioxide Level 24, Anion Gap 9, Blood Urea Nitrogen 20H, Creatinine 0.79, Estimat Glomerular Filtration Rate 93, BUN/Creatinine Rati o 25, Glucose Level 91, Calcium Level 9.7, Corrected Calcium 9.9, Total Bilirubin 0.8, Aspartate Amino Transf (AST/SGOT) 32, Alanine Aminotransferase (ALT/SGPT) 27, Alkaline Phosphatase 66, Total Protein 6.0L, Albumin 3.8 08/06/21 06:12: Glucometer 111H Laboratory Tests 08/04/21 21:25 08/05/21 01:07 08/05/21 05:30 08/06/21 05:28 A/P: Assessment: TIA vs CVA - management per medical services Palpitations - undetermined etiology - Echo on 08/05/21: LVEF 55-60%, small to mod amount of pericardial fluid w/o any evidence of hemodynamic significance, mild to mod TR, PASP 40-45 mmHg Carotid dz - Carotid sclerosis with 50-69% stenosis of the right internal carotid artery by velocity criteria. There is 50-69% stenosis of the left internal carotid artery by velocity criteria. Per u/s of 08-05-21 HTN HLD H/O bladder cancer - treated by Dr. Newman H/O BPH - H/O TURP H/O tobaccoism - quit greater than 50 yrs ago GERD Alzheimer's with dementia Plan: Carotid dz - already started on Plavix TIA probably related to carotid arterial disease. Continue Plavix Outpatient f/u advised Clinical Quality Measures Stroke: Date of last known well: Aug 04, 2021 Time of last known well: 20:00 Symptoms onset unknown: No LUKE GERMAN MD FACP FAC CCDS Aug 06, 2021 17:24
== END 2021-08-06 11:06 | disposition home or self-care (01) ==
LOC: EDUNIT# 21:02 → ER 21:04 → 4TH 23:05
PROVIDERS: ADMIT Internal Medicine; ATTEND Internal Medicine
DX: G45.9 Transient cerebral ischemic attack, unspecified (principal); F02.80 Dementia in other diseases classified elsewhere, unspecified severity, without behavioral disturbance, psychotic disturbance, mood disturbance, and anxiety; E78.5 Hyperlipidemia, unspecified; I10 Essential (primary) hypertension; G30.9 Alzheimer's disease, unspecified; K59.09 Other constipation; M19.90 Unspecified osteoarthritis, unspecified site; K21.9 Gastro-esophageal reflux disease without esophagitis; F17.210 Nicotine dependence, cigarettes, uncomplicated; Z79.899 Other long term (current) drug therapy; Z85.51 Personal history of malignant neoplasm of bladder
CPT/HCPCS: 70450; 70496; 70498; 70544; 70547; 71045; 80053 ×3; 80061; 81000; 82947 ×2; 84484; 85025 ×3; 85027; 85379; 85610; 85730; 93005; 93041; 93306; 93880; 94760; 97116; 97162; 97166; 97530; 99284; G0378; 36415

== ENCOUNTER 2022-10-23 19:16 | Emergency (ER) | payer MEDICARE ==
[~2022-10-23 19:16] MED LIST changes: +AMLO-251 PO; +ATOR20TA66 PO; +ATOR80TA76 PO; +CHOL200052 PO; +CLOP75TA28 PO; +DONE5TAB30 PO; +FAMO20TA5 PO; +UBID100C44 PO
--- NOTE | 2022-10-23 19:33 | ED Fall/Injury ---
General Chief Complaint: Trauma-Non Activation Stated Complaint: FALL, INFECTION ON HAND Source: family Exam Limitations: no limitations History of Present Illness Date Seen by Provider: Oct 23, 2022 Time Seen by Provider: 19:30 Initial Comments I will to ER by private vehicle accompanied by his . He fell yesterday and injured the dorsal aspect of the right hand. Today she noticed a red streak going up the right arm and became concerned so brought him to ER for evaluation. While ambulating into the ER patient fell in the entryway striking his head on the floor. No loss of consciousness. Patient is very demented and is cared for by his . She states that he has otherwise been his normal as far as me ntation and physical strength goes. He did develop a cough yesterday. Occurred: just prior to arrival Severity: moderate Injuries/Pain Location: upper extremity Loss of Consciousness: no loss of consciousness Associated Symptoms (Fall): Denies Symptoms Allergies and Home Medications Allergies Coded Allergies: No Known Drug Allergies (Verified , 05/28/08) Patient Home Medication List Home Medication List Reviewed: Yes Amlodipine Besylate (Amlodipine Besylate) 10 Mg Tablet, 10 MG PO DAILY, (Reported) Entered as Reported by: ЕЛЕНА BRIZUELA on 08/05/21 1144 Atorvastatin Calcium (Atorvastatin Calcium) 80 Mg Tablet, 80 MG PO HS Prescribed by: NOMAN YU on 08/06/21 110 Baloxavir Marboxil (Xofluza) 40 Mg Tablet, 40 MG PO DAILY Prescribed by: DREW DE SANTIAGO on 10/23/222029 Cholecalciferol (Vitamin D3) (Vitamin D3) 50 Mcg Tablet, 50 MCG PO DAILY, (Reported) Entered as Reported by: ЕЛЕНА BRIZUELA on 08/05/21 1149 Clopidogrel Bisulfate (Clopidogrel) 75 Mg Tablet, 75 MG PO DAILY Prescribed by: NOMAN YU on 08/06/21 110 Donepezil HCl (Donepezil HCl) 5 Mg Tablet, 5 MG PO HS, (Reported) Entered as Reported by: ЕЛЕНА BRIZUELA on 08/05/21 1144 Doxycycline Hyclate (Doxycycline Hyclate) 100 Mg Tablet, 100 MG PO BID Prescribed by: DREW DE SANTIAGO on 10/23/222029 Famotidine (Famotidine) 20 Mg Tablet, 20 MG PO DAILY Prescribed by: NOMAN YU on 08/06/21 1108 Lisinopril (Lisinopril) 10 Mg Tablet, 10 MG PO DAILY, (Reported) Entered as Reported by: KODI LESTER on 01/13/19 1110 Multivitamin (Multi-Vitamin Daily) 1 Each Tablet, 1 EACH PO DAILY, (Reported) Entered as Reported by: KODI LESTER on 01/13/19 1110 Ubidecarenone (Co Q-10) 100 Mg Capsule, 100 MG PO DAILY, (Reported) Entered as Reported by: ЕЛЕНА BRIZUELA on 08/05/21 1150 Review of Systems Review of Systems Constitutional: see HPI Eyes: No Symptoms Reported Ears, Nose, Mouth, Throat: no symptoms reported Respiratory: no symptoms reported Cardiovascular: no symptoms reported Genitourinary: no symptoms reported Musculoskeletal: no symptoms reported Skin: no symptoms reported Psychiatric/Neurological: No Symptoms Reported Past Fposoyo-Xqtzoz-Hvbisy Hx Patient Social History Tobacco Use?: No Use of E-Cig and/or Vaping dev: No Substance use?: No Alcohol Use?: No Pt feels they are or have been: No Immunizations Up To Date Influenza Vaccine Up-to-Date: No; Not Current First/Initial COVID19 Vaccinat: SPOUSE DENIES Second COVID19 Vaccination Dennis: SPOUSE DENIES Third COVID19 Vaccination Date: SPOUSE DENIES Seasonal Allergies Seasonal Allergies: Yes Past Medical History Surgeries: Yes (HERINA REPAIR, BLADDER CA REMOVED, LEG SUTURED) Gallbladder, Transurethral Resection Respiratory: No Cardiac: No High Cholesterol, Hypertension Neurological: Yes Dementia Reproductive Disorders: No Sexually Transmitted Disease: No HIV/AIDS: No Genitourinary: Yes (BPH) Prostate Problems Gastrointestinal: Yes Chronic Constipation, Ulcer Musculoskeletal: Yes Arthritis Endocrine: No HEENT: Yes (READING GLASSES, DENTURES) Loss of Vision: Bilateral Hearing Impairment: Hard of Hearing, Bilateral Hearing Aide Cancer: Yes Bladder What Type of Treatment Did You: Surgical Intervention Psychosocial: No Integumentary: No Blood Disorders: No Adverse Reaction/Blood Tranf: No (N/A) Physical Exam Vital Signs Vital Signs - First Documented 10/23/22 19:17 Temp 37.1 Pulse 78 Resp 20 B/P (MAP) 119/45 (69) Pulse Ox 94 O2 Delivery Room Air Capillary Refill : Height, Weight, BMI Height: 5'1.00" Weight: 104lbs. 6.0oz. 47.546683ks; 16.93 BMI Method:Stated General Appearance: WD/WN, no apparent distress, thin, other (Frail had echo) Neck: non-tender, full range of motion Cardiovascular: regular rate, rhythm, no murmur Respiratory: no respiratory distress, no accessory muscle use Gastrointestinal: normal bowel sounds, non tender Extremities: normal range of motion, non-tender, other (Very superficial skin tear to the dorsal aspect of the right hand. Nothing to suture here. There is some ecchymosis/erythema to the dorsal aspect of the right hand and right wrist that does not extend proximal to the wrist) Neurologic/Psychiatric: alert Skin: normal color, warm/dry [place] Coma Score Best Eye Response: (4) Open Spontaneously Best Verbal Response: (4) Confused Conversation Best Motor Response: (6) Obeys Commands [place] Total: 14 Progress/Results/Core Measures Results/Orders Lab Results Laboratory Tests Test 10/23/22 19:28 10/23/22 19:35 Range/Units White Blood Count 10.1 4.3-11.0 10^3/uL Red Blood Count 3.92 L 4.30-5.52 10^6/uL Hemoglobin 12.8 L 13.3-17.7 g/dL Hematocrit 38 L 40-54 % Mean Corpuscular Volume 98 80-99 fL Mean Corpuscular Hemoglobin 33 25-34 pg Mean Corpuscular Hemoglobin Concent 33 32-36 g/dL Red Cell Distribution Width 15.1 H 10.0-14.5 % Platelet Count 189 130-400 10^3/uL Mean Platelet Volume 10.3 9.0-12.2 fL Immature Granulocyte % (Auto) 0 % Neutrophils (%) (Auto) 84 H 42-75 % Lymphocytes (%) (Auto) 9 L 12-44 % Monocytes (%) (Auto) 7 0-12 % Eosinophils (%) (Auto) 0 0-10 % Basophils (%) (Auto) 0 0-10 % Neutrophils # (Auto) 8.4 H 1.8-7.8 10^3/uL Lymphocytes # (Auto) 0.9 L 1.0-4.0 10^3/uL Monocytes # (Auto) 0.7 0.0-1.0 10^3/uL Eosinophils # (Auto) 0.0 0.0-0.3 10^3/uL Basophils # (Auto) 0.0 0.0-0.1 10^3/uL Immature Granulocyte # (Auto) 0.0 0.0-0.1 10^3/uL Prothrombin Time 14.1 12.2-14.7 SEC INR Comment 1.0 0.8-1.4 Sodium Level 141 135-145 MMOL/L Potassium Level 2.6 L 3.6-5.0 MMOL/L Chloride Level 98 98-107 MMOL/L Carbon Dioxide Level 32 21-32 MMOL/L Anion Gap 11 5-14 MMOL/L Blood Urea Nitrogen 16 7-18 MG/DL Creatinine 0.83 0.60-1.30 MG/DL Estimat Glomerular Filtration Rate 85 BUN/Creatinine Ratio 19 Glucose Level 129 H 70-105 MG/DL Calcium Level 9.3 8.5-10.1 MG/DL Corrected Calcium 9.5 8.5-10.1 MG/DL Total Bilirubin 1.4 H 0.1-1.0 MG/DL Aspartate Amino Transf (AST/SGOT) 76 H 5-34 U/L Alanine Aminotransferase (ALT/SGPT) 70 H 0-55 U/L Alkaline Phosphatase 89 40-136 U/L Total Protein 6.1 L 6.4-8.2 GM/DL Albumin 3.8 3.2-4.5 GM/DL Influenza Type A (RT-PCR) Detected H Not Detecte Influenza Type B (RT-PCR) Not Detected Not Detecte SARS-CoV-2 RNA (RT-PCR) Not Detected Not Detecte My Orders Orders - DREW DE SANTIAGO [employer] Cbc With Automated Diff (10/23/22 19:28) Comprehensive Metabolic Panel (10/23/22 19:28) Protime With Inr (10/23/22 19:28) Ct Head/Cervical Spine Wo (10/23/22 19:28) Chest 1 View, Ap/Pa Only (10/23/22 19:28) Ed Iv/Invasive Line Start (10/23/22 19:28) Pelvis 1 To 2 Views (10/23/22 19:28) Hand, Right, 3 Views (10/23/22 19:28) Influenza A And B By Pcr (10/23/22 19:29) Covid 19 Inhouse Test (10/23/22 19:29) Chest 1 View, Ap/Pa Only (10/23/22 20:04) Ceftriaxone 1 Gm Pre-Mix (Rocephin 1 Gm (10/23/22 20:45) Vital Signs/I&O 10/23/22 19:17 Temp 37.1 Pulse 78 Resp 20 B/P (MAP) 119/45 (69) Pulse Ox 94 O2 Delivery Room Air Departure Communication (Admissions) NAME: SASHA LO [facility] REC#: [id number] PT STATUS: REG ER : 1935 PHYSICIAN: DREW DE SANTIAGO APRN ADMIT DATE: 10/23/22/ER Draft Date of Exam:10/23/22 CHEST 1 VIEW, AP/PA ONLY EXAMINATION: Chest 1 view. HISTORY: Pneumothorax evaluation. COMPARISON: 10/23/2022. FINDINGS: Heart size and pulmonary vasculature are normal. The linear abnormality seen along the left hemithorax on prior radiograph is no longer seen on this follow-up exam. There are mild left basilar opacities. There is trace right pleural effusion or pleural thickening, unchanged. No pneumothorax. Degenerative changes of the thoracic spine. Osseous structures are otherwise intact. IMPRESSION: 1. No visualized pneumothorax. Finding on prior radiograph likely represented artifact from skin fold or external fabric. 2. Trace right pleural effusion with bibasilar interstitial opacities. Dictated on workstation # [id number] Dict: 10/23/222022 Trans: 10/23/222026 [facility] [id number] Interpreted by: MEGAN PANIAGUA DO Electronically signed by: NAME: SASHA LO [facility] REC#: [id number] PT STATUS: REG ER : 1935 PHYSICIAN: DREW DE SANTIAGO APRN ADMIT DATE: 10/23/22/ER Draft Date of Exam:10/23/22 CHEST 1 VIEW, AP/PA ONLY EXAMINATION: Chest 1 view. HISTORY: Weakness. COMPARISON: 08/04/2021. FINDINGS: Heart size and pulmonary vasculature are normal. There is a linear abnormality overlying the lateral left mid and lower lung. There do appear to be lung markings extending within this location. There is trace right pleural effusion. No consolidation. Degenerative changes of the thoracic spine. Osseous structures are otherwise intact. IMPRESSION: Possible left pneumothorax. This abnormality may be secondary to an external skin fold or blanket. Consider repeat radiograph with repositioning of the patient and removal of any external objects that could cause this appearance. Critical finding. Results communicated to Drew De Santiago APRN by Dr. Reji Paniagua at 8:00 PM on 10/23/2022. Dictated on workstation # [id number] Dict: 10/23/221957 Trans: 10/23/222002 [id number] Interpreted by: MEGAN PANIAGUA DO Electronically signed by: Impression Primary Impression: Influenza A Additional Impressions: Tear of skin of right wrist Soft tissue infection Disposition: HOME, SELF-CARE Condition: Stable Departure-Patient Inst. Decision time for Depature: 20:27 Referrals: RYAN CONNELL DO (PCP/Family) Primary Care Physician Patient Instructions: Wound Care ED, Flu, Adult (DC) Add. Discharge Instructions: 1. Take the flu medication as directed. Take the antibiotics as directed for the redness on the back of the right hand. Return to Er for any concerns All discharge instructions reviewed with patient and/or family. Voiced understanding. Scripts Doxycycline Hyclate (Doxycycline Hyclate) 100 Mg Tablet 100 MG PO BID, #14 TAB 0 Refills Prov: DREW DE SANTIAGO APRN 10/23/22 Baloxavir Marboxil (Xofluza) 40 Mg Tablet 40 MG PO DAILY, #1 TAB Prov: DREW DE SANTIAGO APRN 10/23/22 DREW DE SANTIAGO APRN Oct 23, 2022 19:33
[2022-10-23 19:34] LABS: BASOPHILS % (AUTO) 0 % (0-10); EOSINOPHILS % (AUTO) 0 % (0-10); HEMATOCRIT 38 % (40-54); HEMOGLOBIN 12.8 g/dL (13.3-17.7); LYMPHOCYTES # (AUTO) 0.9 10^3/uL (1.0-4.0); LYMPHOCYTES % (AUTO) 9 % (12-44); MEAN CORPUSCULAR HEMOGLOBIN 33 pg (25-34); MEAN CORPUSCULAR HGB CONC 33 g/dL (32-36); MEAN CORPUSCULAR VOLUME 98 fL (80-99); MEAN PLATELET VOLUME 10.3 fL (9.0-12.2); MONOCYTES # (AUTO) 0.7 10^3/uL (0.0-1.0); MONOCYTES % (AUTO) 7 % (0-12); NEUTROPHILS # (AUTO) 8.4 10^3/uL (1.8-7.8); NEUTROPHILS % (AUTO) 84 % (42-75); PLATELET COUNT 189 10^3/uL (130-400); WHITE BLOOD COUNT 10.1 10^3/uL (4.3-11.0)
[2022-10-23 19:49] LABS: PROTHROMBIN TIME PATIENT 14.1 SEC (12.2-14.7)
--- NOTE | 2022-10-23 19:57 | Diagnostic Imaging Report ---
EXAMINATION: CT head and CT cervical spine without contrast. TECHNIQUE: Multiple contiguous axial images were obtained through the brain and cervical spine without the use of intravenous contrast. Sagittal and coronal reformations through the cervical spine were then performed. All CT scans use one or more of the following dose optimizing techniques: automated exposure control, MA and/or KvP adjustment based on patient size and exam type or iterative reconstruction. HISTORY: Head and neck pain after fall. COMPARISON: None available. FINDINGS: HEAD: Mild diffuse cerebral volume loss with proportional enlargement of the ventricles and sulci. Moderate hypodensities throughout the supratentorial white matter of both cerebral hemispheres. No acute intracranial hemorrhage or abnormal extra-axial fluid collections are present. Calcification of the intracranial ICAs. No hyperdense vessel. The calvarium is intact. The mastoid air cells are clear. The visualized paranasal sinuses are clear. The orbits are normal. C-SPINE: Vertebral body height and alignment are preserved. No acute fracture, dislocation, or destructive osseous process. Multilevel facet hypertrophy without perched facets. Multilevel cervical spondylosis. The paraspinous soft tissues are normal. The visualized thyroid gland is normal. Scarring within the lung apices. IMPRESSION: 1. No acute intracranial abnormality. Chronic microangiopathy and volume loss. 2. Degenerative changes in the cervical spine without acute osseous abnormality. Dictated by: Dictated on workstation # [id number]
[2022-10-23 19:59] LABS: ALBUMIN 3.8 GM/DL (3.2-4.5); BILIRUBIN,TOTAL 1.4 MG/DL (0.1-1.0); CALCIUM 9.3 MG/DL (8.5-10.1); CREATININE SERUM 0.83 MG/DL (0.60-1.30); POTASSIUM 2.6 MMOL/L (3.6-5.0); TOTAL PROTEIN 6.1 GM/DL (6.4-8.2)
--- NOTE | 2022-10-23 20:04 | Diagnostic Imaging Report ---
EXAMINATION: Chest 1 view. HISTORY: Weakness. COMPARISON: 08/04/2021. FINDINGS: Heart size and pulmonary vasculature are normal. There is a linear abnormality overlying the lateral left mid and lower lung. There do appear to be lung markings extending within this location. There is trace right pleural effusion. No consolidation. Degenerative changes of the thoracic spine. Osseous structures are otherwise intact. IMPRESSION: Possible left pneumothorax. This abnormality may be secondary to an external skin fold or blanket. Consider repeat radiograph with repositioning of the patient and removal of any external objects that could cause this appearance. Critical finding. Results communicated to Samy De Santiago APRN by Dr. Reji Riggs at 8:00 PM on 10/23/2022. Dictated by: Dictated on workstation # [id number]
--- NOTE | 2022-10-23 20:04 | Diagnostic Imaging Report ---
EXAMINATION: Right hand radiographs. EXAM DATE: 10/23/2022 7:54 PM COMPARISON: None available. HISTORY: Right hand pain. TECHNIQUE: 3 views. FINDINGS: There is no acute fracture, dislocation, or destructive osseous process. Degenerative changes seen throughout the right hand. The soft tissues are normal. IMPRESSION: No acute osseous abnormality. Dictated by: Dictated on workstation # [id number]
--- NOTE | 2022-10-23 20:05 | Diagnostic Imaging Report ---
EXAMINATION: Pelvis radiograph. EXAM DATE: 10/23/2022 7:54 PM COMPARISON: None available. HISTORY: Pelvic pain. TECHNIQUE: 1 views. FINDINGS: There is no acute fracture, dislocation, or destructive osseous process. The joint spaces are normal. The soft tissues are normal. IMPRESSION: No acute osseous abnormality. Dictated by: Dictated on workstation # [id number]
--- NOTE | 2022-10-23 20:27 | Diagnostic Imaging Report ---
EXAMINATION: Chest 1 view. HISTORY: Pneumothorax evaluation. COMPARISON: 10/23/2022. FINDINGS: Heart size and pulmonary vasculature are normal. The linear abnormality seen along the left hemithorax on prior radiograph is no longer seen on this follow-up exam. There are mild left basilar opacities. There is trace right pleural effusion or pleural thickening, unchanged. No pneumothorax. Degenerative changes of the thoracic spine. Osseous structures are otherwise intact. IMPRESSION: 1. No visualized pneumothorax. Finding on prior radiograph likely represented artifact from skin fold or external fabric. 2. Trace right pleural effusion with bibasilar interstitial opacities. Dictated by: Dictated on workstation # [id number]
[2022-10-23] MEDS ORDERED: BALO40TA4 PO (20:30)
[2022-10-23] MEDS ORDERED: DOXY100T2 PO (20:30)
[2022-10-23] MEDS ORDERED: cefTRIAXone 1 GM PRE-MIX 50 ML IV ONE (20:45)
[2022-10-23] MEDS ORDERED: POTA-51 PO (21:00)
[2022-10-23] MEDS ORDERED: KCL 20 MEQ TAB (K-DUR) PO ONE (21:00)
[2022-10-23 21:26] VITALS: BP 116/53
== END 2022-10-23 21:29 | disposition home or self-care (01) ==
LOC: EDUNIT# 19:16 → ER 19:18
DX: S61.511A Laceration without foreign body of right wrist, initial encounter (principal); J10.1 Influenza due to other identified influenza virus with other respiratory manifestations; L08.9 Local infection of the skin and subcutaneous tissue, unspecified; Z20.822 Contact with and (suspected) exposure to COVID-19; Z28.310 Unvaccinated for COVID-19; W18.30XA Fall on same level, unspecified, initial encounter; W22.8XXA Striking against or struck by other objects, initial encounter
CPT/HCPCS: 36415; 70450; 71045; 72125; 72170; 73130; 80053; 85025; 85610; 87636

== ENCOUNTER 2022-10-27 13:27 | Emergency (ER) | payer MEDICARE ==
[~2022-10-27 13:27] MED LIST changes: +BALO40TA4 PO; +DOXY100T2 PO; +POTA-51 PO
[2022-10-27] MEDS ORDERED: DEXTROSE 50% 50 ML (IMS) SYR INJ ONE (13:39)
[2022-10-27] MEDS ORDERED: ETOMIDATE IV SOLN 20 MG/10 ML VIAL IV ONE (13:39)
[2022-10-27] MEDS ORDERED: ROCURONIUM 10 MG/ML 5 ML SYRINGE IV ONE (13:39)
--- NOTE | 2022-10-27 13:45 | ED CPR ---
HPI-CPR General Stated Complaint: SOB Source of Information: EMS Exam Limitations: Other (clinical condition) History of Present Illness Date Seen by Provider: Oct 27, 2022 Time Seen by Provider: 13:30 Initial Comments 87-year-old male presents the emergency department today as a CODE BLUE. EMS reports alcohol for respiratory distress. On arrival patient was unresponsive and reportedly in PEA. He received CPR and 2 rounds of epinephrine in route. Just prior to being removed from the ambulance and transferred him to our emergency department the patient regained pulses. He has reportedly recently been ill with the flu. Blood sugar on arrival was 51. He is given an amp of D50 immediately. Allergies and Home Medications Allergies Coded Allergies: No Known Drug Allergies (Verified , 05/28/08) Patient Home Medication List Home Medication List Reviewed: Yes Amlodipine Besylate (Amlodipine Besylate) 10 Mg Tablet, 10 MG PO DAILY, (Reported) Entered as Reported by: ЕЛЕНА BRIZUELA on 08/05/21 1144 Atorvastatin Calcium (Atorvastatin Calcium) 80 Mg Tablet, 80 MG PO HS Prescribed by: NOMAN YU on 08/06/21 110 Baloxavir Marboxil (Xofluza) 40 Mg Tablet, 40 MG PO DAILY Prescribed by: DREW MATHIAS on 10/23/222029 Cholecalciferol (Vitamin D3) (Vitamin D3) 50 Mcg Tablet, 50 MCG PO DAILY, (Reported) Entered as Reported by: ЕЛЕНА BRIZUELA on 08/05/21 1149 Clopidogrel Bisulfate (Clopidogrel) 75 Mg Tablet, 75 MG PO DAILY Prescribed by: NOMAN YU on 08/06/21 110 Donepezil HCl (Donepezil HCl) 5 Mg Tablet, 5 MG PO HS, (Reported) Entered as Reported by: ЕЛЕНА BRIZUELA on 08/05/21 1144 Doxycycline Hyclate (Doxycycline Hyclate) 100 Mg Tablet, 100 MG PO BID Prescribed by: DREW MATHIAS on 10/23/222029 Famotidine (Famotidine) 20 Mg Tablet, 20 MG PO DAILY Prescribed by: NOMAN YU on 08/06/21 110 Lisinopril (Lisinopril) 10 Mg Tablet, 10 MG PO DAILY, (Reported) Entered as Reported by: KODI LESTER on 01/13/19 1110 Multivitamin (Multi-Vitamin Daily) 1 Each Tablet, 1 EACH PO DAILY, (Reported) Entered as Reported by: KODI LESTER on 01/13/19 1110 Potassium Chloride (Potassium Chloride) 20 Meq Tablet.er, 20 MEQ PO DAILY Prescribed by: DREW MATHIAS on 10/23/22 2100 Ubidecarenone (Co Q-10) 100 Mg Capsule, 100 MG PO DAILY, (Reported) Entered as Reported by: ЕЛЕНА BRIZUELA on 08/05/21 1150 Review of Systems Review of Systems Constitutional: other (Unable to obtain, patient unresponsive) Past Vplpumu-Olwfrb-Flnktn Hx Immunizations Up To Date First/Initial COVID19 Vaccinat: SPOUSE DENIES Second COVID19 Vaccination Dennis: SPOUSE DENIES Third COVID19 Vaccination Date: SPOUSE DENIES Seasonal Allergies Seasonal Allergies: Yes Past Medical History Surgery/Hospitalization HX: All obtained past medical, surgical, social and family history obtained via records as patient is currently unresponsive. Surgeries: Yes (HERINA REPAIR, BLADDER CA REMOVED, LEG SUTURED) Gallbladder, Transurethral Resection Respiratory: No Cardiac: No High Cholesterol, Hypertension Neurological: Yes Dementia Reproductive Disorders: No Sexually Transmitted Disease: No HIV/AIDS: No Genitourinary: Yes (BPH) Prostate Problems Gastrointestinal: Yes Chronic Constipation, Ulcer Musculoskeletal: Yes Arthritis Endocrine: No HEENT: Yes (READING GLASSES, DENTURES) Loss of Vision: Bilateral Hearing Impairment: Hard of Hearing, Bilateral Hearing Aide Cancer: Yes Bladder What Type of Treatment Did You: Surgical Intervention Psychosocial: No Integumentary: No Blood Disorders: No Adverse Reaction/Blood Tranf: No (N/A) Physical Exam Vital Signs Vital Signs - First Documented 10/27/22 10/27/22 13:27 13:51 Pulse 57 Resp 6 B/P (MAP) 91/44 (60) Pulse Ox 74 O2 Delivery Ambu Bag O2 Flow Rate 15.00 FiO2 80 Capillary Refill : Height, Weight, BMI Height: 5'1.00" Weight: 104lbs. 6.0oz. 47.193664hx; 16.93 BMI Method:Stated General Appearance: Chronically ill, Cachetic HEENT: PERRL/EOMI Neck: Supple Respiratory: Other (Lungs are severely constricted bilaterally with scant whee zing. There are trace rhonchi bilateral lung reeder as well) Cardiovascular: Regular Rate, Rhythm, No Edema Gastrointestinal: No Organomegaly, No Pulsatile Mass, Soft Extremity: Other (Delayed capillary refill) Neurologic/Psychiatric: Other (Unresponsive with bag valve ventilations) Skin: Pallor Focused Exam Lactate Level 10/27/22 13:53: Lactic Acid Level 13.77*H Lactic Acid Level Laboratory Tests Test 10/27/22 13:53 Lactic Acid Level 13.77 MMOL/L (0.50-2.00) *H Procedures/Interventions Intubation Method: orotracheal Tube Size: 7.5 Medications: Etomidate, Rocuronium Positive End Tide CO2: Yes Breath Sounds after Intubation: bilateral-equal Intubation Complications: no complications Post Intubation Xray: Yes Progress/Results/Core Measures Results/Orders Lab Results Laboratory Tests Test 10/27/22 13:44 10/27/22 13:53 10/27/22 14:21 Range/Units White Blood Count 7.3 4.3-11.0 10^3/uL Red Blood Count 3.41 L 4.30-5.52 10^6/uL Hemoglobin 11.2 L 13.3-17.7 g/dL Hematocrit 38 L 40-54 % Mean Corpuscular Volume 111 H 80-99 fL Mean Corpuscular Hemoglobin 33 25-34 pg Mean Corpuscular Hemoglobin Concent 30 L 32-36 g/dL Red Cell Distribution Width 15.5 H 10.0-14.5 % Platelet Count 114 L 130-400 10^3/uL Mean Platelet Volume 10.9 9.0-12.2 fL Immature Granulocyte % (Auto) 4 % Neutrophils (%) (Auto) 68 42-75 % Lymphocytes (%) (Auto) 23 12-44 % Monocytes (%) (Auto) 5 0-12 % Eosinophils (%) (Auto) 0 0-10 % Basophils (%) (Auto) 0 0-10 % Neutrophils # (Auto) 5.0 1.8-7.8 10^3/uL Lymphocytes # (Auto) 1.6 1.0-4.0 10^3/uL Monocytes # (Auto) 0.3 0.0-1.0 10^3/uL Eosinophils # (Auto) 0.0 0.0-0.3 10^3/uL Basophils # (Auto) 0.0 0.0-0.1 10^3/uL Immature Granulocyte # (Auto) 0.3 H 0.0-0.1 10^3/uL Percent Immature Platelet Fraction 7.4 0.0-7.6 % Prothrombin Time 17.5 H 12.2-14.7 SEC INR Comment 1.4 0.8-1.4 Activated Partial Thromboplast Time 46 H 24-35 SEC Sodium Level 145 135-145 MMOL/L Potassium Level 4.6 3.6-5.0 MMOL/L Chloride Level 106 98-107 MMOL/L Carbon Dioxide Level 13 L 21-32 MMOL/L Anion Gap 26 H 5-14 MMOL/L Blood Urea Nitrogen 26 H 7-18 MG/DL Creatinine 1.25 0.60-1.30 MG/DL Estimat Glomerular Filtration Rate 56 BUN/Creatinine Ratio 21 Glucose Level 299 H 70-105 MG/DL Calcium Level 8.0 L 8.5-10.1 MG/DL Corrected Calcium 9.2 8.5-10.1 MG/DL Total Bilirubin 0.9 0.1-1.0 MG/DL Aspartate Amino Transf (AST/SGOT) 909 H 5-34 U/L Alanine Aminotransferase (ALT/SGPT) 827 H 0-55 U/L Alkaline Phosphatase 80 40-136 U/L Troponin I 0.058 H <0.028 NG/ML Total Protein 4.2 L 6.4-8.2 GM/DL Albumin 2.5 L 3.2-4.5 GM/DL Lactic Acid Level 13.77 *H 0.50-2.00 MMOL/L SARS-CoV-2 RNA (RT-PCR) Not Detected Not Detecte Micro Results Microbiology 10/27/22 Blood Culture - Preliminary, Resulted No growth My Orders Orders - ERIN STAFFORD DO Cbc With Automated Diff (10/27/22 13:46) Comprehensive Metabolic Panel (10/27/22 13:46) Blood Culture (10/27/22 13:46) Protime With Inr (10/27/22 13:46) Partial Thromboplastin Time (10/27/22 13:46) Chest 1 View, Ap/Pa Only (10/27/22 13:46) Ed Iv/Invasive Line Start (10/27/22 13:46) Ekg Tracing (10/27/22 13:46) Troponin I Lilian (10/27/22 13:46) Vital Signs Adult Sepsis Patie Q15M (10/27/22 13:46) O2 (10/27/22 13:46) Lactic Acid Analyzer (10/27/22 13:46) Covid 19 Inhouse Test (10/27/22 13:46) Albuterol/Ipra Inhalation Soln (Duoneb I (10/27/22 14:00) Methylprednisolone Sod Succ (Solu-Medrol (10/27/22 14:00) Svn Small Volume Nebulizer (10/27/22 13:46) Og Tube Insertion (10/27/22 13:46) Catheter(Urinary) Insert & Ass 03,15 (10/27/22 13:46) Og Tube Insertion (10/27/22 13:46) Ns Iv 500 Ml (Sodium Chloride 0.9%) (10/27/22 14:15) Ed Admission (Communication) (10/27/22 14:59) Medications Given in ED Vital Signs/I&O 10/27/22 10/27/22 10/27/22 13:27 13:27 13:51 Pulse 57 73 Resp 6 15 B/P (MAP) 91/44 (60) Pulse Ox 74 100 O2 Delivery Ambu Bag Ambu Bag O2 Flow Rate 15.00 FiO2 80 EKG : Comment Sinus rhythm with a rate of 86 bpm. Normal intervals. Normal axis. No ST or T wave abnormalities. No ectopy. Diagnostic Imaging Comments AP chest x-ray shows hazy infiltrates bilaterally, severe COPD type changes. ET tube is in good position. OG tube tip is at the GE junction. Critical Care Note Critical Care Total Time (minutes) 45 Departure Communication (Admissions) Patient initially comes in with agonal respirations. Initial rhythm was reportedly PEA but he has a pulse on arrival. Blood pressure is slightly low in the 90s systolic. Recheck medical record the patient was reportedly full code according to our records and EMS. He was emergently intubated. The family lives in ultimately decided that he would not want to be on the ventilator. He request comfort care only due to his significant dementia and poor quality of life. I think this is reasonable at this time. He is extubated. Initially had a period of apnea after extubation but then did start breathing about 20 to 25/min. Oxygen saturation is low in the mid 70s. He is hypotensive in the 60s systolic. We will go ahead admit him for comfort care measures. 1516: Awaiting bed placement the patient continued to have worsening bradycardia, episodes of apnea with hypoxia. Respiratory rate noted to be 0 on bedside monitor and heart rate 5. Went into check on the patient and he had no pulse. He had no discernible rhythm on the bedside monitor at that time and no spontaneous respirations. Time of at 1516. Impression Primary Impression: Respiratory failure Qualified Codes: J96.21 - Acute and chronic respiratory failure with hypoxia; J96.22 - Acute and chronic respiratory failure with hypercapnia Additional Impression: Dementia Qualified Codes: F03.C0 - Unspecified dementia, severe, without behavioral disturbance, psychotic disturbance, mood disturbance, and anxiety Disposition: 20 Condition: Departure-Patient Inst. Referrals: RYAN CONNELL DO (PCP/Family) Primary Care Physician ERIN STAFFORD DO Oct 27, 2022 13:45
[2022-10-27] MEDS ORDERED: RT-ALBUTEROL/IPRATROPIUM 3 ML (DUONEB) VIAL ONE (13:46)
[2022-10-27 13:51] VITALS: BP 128/53
[2022-10-27 13:54] LABS: BASOPHILS % (AUTO) 0 % (0-10); EOSINOPHILS % (AUTO) 0 % (0-10); HEMOGLOBIN 11.2 g/dL (13.3-17.7); MEAN CORPUSCULAR HGB CONC 30 g/dL (32-36); MONOCYTES # (AUTO) 0.3 10^3/uL (0.0-1.0)
[2022-10-27 13:56] LABS: HEMATOCRIT 38 % (40-54); LYMPHOCYTES # (AUTO) 1.6 10^3/uL (1.0-4.0); LYMPHOCYTES % (AUTO) 23 % (12-44); MEAN CORPUSCULAR HEMOGLOBIN 33 pg (25-34); MEAN CORPUSCULAR VOLUME 111 fL (80-99); MEAN PLATELET VOLUME 10.9 fL (9.0-12.2); MONOCYTES % (AUTO) 5 % (0-12); NEUTROPHILS % (AUTO) 68 % (42-75); PLATELET COUNT 114 10^3/uL (130-400); WHITE BLOOD COUNT 7.3 10^3/uL (4.3-11.0)
[2022-10-27] MEDS ORDERED: RT-ALBUTEROL/IPRATROPIUM 3 ML (DUONEB) VIAL INH ONE (14:00)
[2022-10-27] MEDS ORDERED: methylPREDNISolone 125 MG (Solu-MEDROL) VIAL IVP ONE (14:00)
[2022-10-27 14:06] LABS: ALBUMIN 2.5 GM/DL (3.2-4.5)
[2022-10-27 14:08] LABS: INR 1.4 (0.8-1.4); PROTHROMBIN TIME PATIENT 17.5 SEC (12.2-14.7); TOTAL PROTEIN 4.2 GM/DL (6.4-8.2)
[2022-10-27 14:10] LABS: BILIRUBIN,TOTAL 0.9 MG/DL (0.1-1.0); POTASSIUM 4.6 MMOL/L (3.6-5.0)
[2022-10-27 14:12] LABS: CREATININE SERUM 1.25 MG/DL (0.60-1.30)
[2022-10-27] MEDS ORDERED: NS IV 500 ML 500 ML IV SCH (14:15)
--- NOTE | 2022-10-27 14:24 | Diagnostic Imaging Report ---
Indication: Cardiopulmonary arrest Portable chest 2:04 PM There is ET tube projects over the trachea. NG tube tip is at the gastroesophageal junction. There are severe emphysema in the lungs. There are no infiltrates, effusions or pneumothoraces. IMPRESSION: Air trapping with COPD. Dictated by: Dictated on workstation # [id number]
[2022-10-27] MEDS ORDERED: SCOPOLAMINE 1.5 MG (TRANSDERM-SCOP) PATCH TOP SCH (15:30)
[2022-10-27] MEDS ORDERED: morphine INJ 4 MG/ML 1 ML (VIAL/SYRINGE) IV PRN (15:30)
[2022-10-27] MEDS ORDERED: LORazepam 1 MG (ATIVAN) TAB SL PRN (15:30)
[2022-10-27] MEDS ORDERED: SALIVA SUBSTITUTE 60 ML SPRAY(MOUTHKOTE) MM PRN (15:30)
[2022-10-27] MEDS ORDERED: GLYCOPYRROLATE 0.2 MG/ML (ROBINUL) 2 ML VIAL IV PRN (15:30)
[2022-10-27] MEDS ORDERED: PROMETHAZINE INJ 25 MG/ML (PHENERGAN) AMP IVP PRN (15:30)
[2022-10-27] MEDS ORDERED: ACETAMINOPHEN 650 MG SUPP (TYLENOL) PR PRN (15:30)
[2022-10-27] MEDS ORDERED: BISACODYL 10 MG SUPP (DULCOLAX) PR PRN (15:30)
[2022-10-27] MEDS ORDERED: RT-ALBUTEROL/IPRATROPIUM 3 ML (DUONEB) VIAL INH PRN (15:30)
[2022-10-27] MEDS ORDERED: ATROPINE 1% OPHTHALMIC SOLN 2 ML SL PRN (15:30)
[2022-10-27] MEDS ORDERED: ONDANSETRON 4 MG/2 ML (SDV) Z0FRAN IVP PRN (15:30)
[2022-10-27] MEDS ORDERED: ARTIFICAL TEARS 0.4 ML UNIT DOSE (REFRESH PLUS) OU PRN (15:30)
[2022-10-27] MEDS ORDERED: LIDOCAINE UROJET 2% GEL 10 ML PKG TOP ONE (15:45)
[2022-10-27 16:20] VITALS: BP 0/0
== END 2022-10-27 16:20 | disposition expired ==
LOC: EDUNIT# 13:37 → ER 13:38 → UNDOADMOB 15:00 → INTOOBSV 15:00 → 4TH 15:00 → ER 16:20
DX: J96.90 Respiratory failure, unspecified, unspecified whether with hypoxia or hypercapnia (principal); F03.90 Unspecified dementia, unspecified severity, without behavioral disturbance, psychotic disturbance, mood disturbance, and anxiety; I95.9 Hypotension, unspecified; Z20.822 Contact with and (suspected) exposure to COVID-19
CPT/HCPCS: 36415; 51702; 71045; 80053; 83605; 84484; 85025; 85610; 85730; 87040; 87636; 93005